=== PATIENT | female | born 1960 | race Hispanic/Latino ===

== ENCOUNTER 2023-08-11 09:23 | Emergency (ER) | payer MEDICAID, SELFPAY ==
[2023-08-11 09:30] VITALS: BP 176/68; PULSE 75; RESP 12; TEMP 36.8; O2SAT 100
--- NOTE | 2023-08-11 10:13 | ED.RECABL ---
HPI - Recheck/Abnormal Lab/Rx General Chief Complaint: Recheck/Abnormal Lab/Rx Stated Complaint: ELEVATED BLOOD PRESSURE Time Seen by Provider: 08/11/23 09:33 History of Present Illness HPI narrative: Patient drank some coffee yesterday and her BP went up; She has been told before that she has possibly high blood pressure however has not required medications because it seems to have been adequately controlled with diet and exercise, she went to another hospital yesterday and had a full workup, however she left because she was very hungry and there was a long wait. She is denying any symptoms other than she feels hungry And slightly anxious right now with a mild headache. no chest pain, or difficulty breathing. No blurry vision. She would like to be started on some medications for blood pressure at this time. Related Data Allergies Allergy/AdvReac Type Severity Reaction Status Date / Time No Known Allergies Allergy Verified 08/11/23 09:46 Review of Systems Review of Systems: All systems reviewed & are unremarkable except as noted in HPI and below Exam Narrative: EXAMINATION OF ORGAN SYSTEMS/BODY AREAS: Constitutional: Vital signs per nursing GENERAL: [No acute distress, non-toxic appearing.] HEAD: Normal with no signs of head trauma. EYES: EOMI, conjunctiva normal ENT: Hearing grossly intact LUNGS: Nonlabored breathing. HEART: [Regular rate and rhythm] ABD: [Soft], [nontender to palpation] EXT: Normal range of motion SKIN: [No rashes or lesions.] NEURO: [Alert and oriented x 3. No gross focal sensory or strength deficits.] PSYCH: Normal affect Course Vital Signs Vital signs: Vital Signs Temperature 98.2 F 08/11/23 09:30 Pulse Rate 75 08/11/23 09:30 Respiratory Rate 12 08/11/23 09:30 Blood Pressure 176/68 H 08/11/23 09:30 Pulse Oximetry 100 08/11/23 09:30 Oxygen Delivery Room Air 08/11/23 09:30 Temperature 98.2 F 08/11/23 09:30 Pulse Rate 68 08/11/23 10:25 Respiratory Rate 18 08/11/23 10:25 Blood Pressure 151/65 H 08/11/23 10:25 Pulse Oximetry 100 08/11/23 10:25 Oxygen Delivery Room Air 08/11/23 09:30 MDM - Recheck/Abnormal Lab/Rx MDM Narrative Medical decision making narrative: Patient with asymptomatic hypertension. No signs or symptoms of end organ dysfunction; no chest pain or shortness of breath, neurological deficits, severe headaches, visual disturbance, oliguria, or symptoms of dissection/AAA). We discussed lifestyle modifications including diet and exercise. I will start patient on amlodipine here and provide script for short course, patient expressed understanding of the instructions and strongly advised to follow-up with PMD for further management. She does take her BP daily so we did discuss goals for BP and she will follow up with her PCP for further medication mgmt with strict return precautions. Discharge Plan Discharge Clinical Impression: Hypertension Patient Disposition: Home, Self-Care Condition: Improved Instructions: Antibiotic Form, Hypertension (ED), Normal Exam (ED) Additional Instructions: Please follow up with your doctor; you can always return for any further issues. Patient Language: Greek Prescriptions: New amlodipine 2.5 mg tablet 2.5 mg PO DAILY Qty: 30 0RF Follow-up/Referrals: UNKNOWN,DOCTOR [Primary Care Provider] -
[2023-08-11] MEDS: amLODIPine BESYLATE 2.5 MG TABLET PO (10:16)
[2023-08-11 10:25] VITALS: BP 151/65; PULSE 68; RESP 18; O2SAT 100
== END 2023-08-11 10:42 | disposition home or self-care (01) ==
LOC: ANHED 10:11
PROVIDERS: Emergency Provider Emergency Medicine
DX: I10 Essential (primary) hypertension (principal)
CPT/HCPCS: 99283; A9270

== ENCOUNTER 2024-09-09 21:57 | Emergency (ER) | payer MEDICARE, SELFPAY ==
--- NOTE | ~2024-09-09 | CT_ITS ---
CT of the Abdomen and Pelvis: Indication: Right flank pain Technique: 2.5 mm axial scans were obtained through the abdomen and pelvis following intravenous adm inistration of 100 cc of Omnipaque 350. Dose reduction technique was used on this scan by utilizing a utomated exposure control and iterative reconstruction technique. The dose-length product (DLP) was 4 94.93 mGy-cm. Findings: Scans through the lung bases are unremarkable. The liver, spleen, pancreas, gallbladder, adrenals and kidneys are within normal limits. No evidence of aortic aneurysm. No lymphadenopathy. No bowel obstruction or bowel wall thickening. There is no evidence to suggest acute appendicitis. Sm all fat-containing abdominal hernia noted. Images through the pelvis were performed. Urinary bladder unremarkable. No adnexal mass seen. No asci aquilino. Impression: No acute abnormality. Small fat-containing umbilical hernia. Reviewed, dictated and finalized at [facility]. HIC ART DESIGNER Impression: No acute abnormality. Small fat-containing umbilical hernia.
--- OUTSIDE RECORDS SUMMARY | 2024-09-09 21:58 | XMS_ITS | Clinical Summary ---
Author Organization [facility] Address [address] [place] [address] Care Team Providers Care Cash Teller Name Role Phone [facility] Primary Care Pro vider Source Comments [facility],non-owned Affiliates and Associated Physician Practices is amultiple site organization consisting of ambulatory clinics and hospital sitesin [place], [place], [place] and [place]. This disclosure is being madepursuant to the Care Everywhere program and may not contain all information available regarding this patient. Last updated 18.[facility] Allergies No known active allergies Medications * Be aware that medications may not be up to date on this document. Alwaysverify current medications with the patient. Medication Sig Dispensed Refills Start Date End Date Status meclizine (ANTIVERT) 25 MG tablet Take 25 mg by mouth 3X/day PRN. 20 tablet 0 02/21/2017 Active ibuprofen (MOTRIN) 400 MG tablet Take 400 mg by mouth q8h PRN (Pain). 15 tablet 0 06/02/2016 Active famotidine (PEPCID) 20 MG tablet Take 20 mg by mouth BID. 60 tablet 0 06/02/2016 Active escitalopram (LEXAPRO) 10 MG tablet Take 10 mg by mouth once daily Active Social History Tobacco Use Types Packs/Day Years Used Date Smoking Tobacco: Never Smokeless Tobacco: Never Alcohol Use Standard Drinks/Week Comments No 0 (1 standard drink = 0.6 oz pur e alcohol) Sex and Gender Information Value Date Recorded Sex Assigned at Not on file Gender Identity Not on file Sexual Orientation Not on file Last Filed Vital Signs Vital Sign Reading Time Taken Comments Blood Pressure 142/59 12/07/2018 4:37 AM CDT Pulse 71 12/07/2018 4:37 AM CDT Temperature 36.7 C (98.1 F) 12/06/2018 11:55 PM CDT Respiratory Rate 18 12/07/2018 4:37 AM CDT Oxygen Saturation 99% 12/07/2018 4:37 AM CDT Inhaled Oxygen Concentration - - Weight 81.6 kg (180 lb) 12/06/2018 9:58 PM CDT Height 157.5 cm (5' 2 ) 12/06/2018 9:58 PM CDT Body Mass Index 32.92 12/06/2018 9:58 PM CDT Plan of Treatment Health Maintenance Due Date Last Done Comments BONE DENSITY TESTING 1959 COLOGUARD (AGES 45-75) - COL ON CA SCREENING 1959 COLON MONITORING 1959 COLONOSCOPY - COLON CA SCREENING 1959 CT COLONOGRAPHY - COLON CA SCREENING 1959 Colorectal Cancer Screening 1959 FIT - COLON CA SCREENING 1959 FLEX SIG - COLON CA SCREENING 1959 LIPID TESTING 1959 PAP SMEAR 1959 HIV SCREENING 1974 HEPATITIS C SCREENING 03/30/1977 DTAP/TDAP/TD VACCINES (1 - Tdap) 1978 PNEUMOCOCCAL VACCINE 50+ (1 of 1 - PCV) 2009 ZOSTER VACCINE (1 of 2) 2009 MAMMOGRAM 08/10/2020 08/10/2018 COVID-19 VACCINE ( - 2023-2 5 season) 2024 INFLUENZA VACCINE (#1) 2024 DEPRESSION SCREENING 07/11/2024 Respiratory Syncytial Virus (RSV) Vaccine Pt: or over 60 yrs (1 - 1-dose 75+ series) 2034 HEPATITIS B VACCINE Aged Out No longe r eligible based on patient's age to complete this topic HIB VACCINE Aged Out No longer eligi ble based on patient's age to complete this topic HPV VACCINE Aged Out No longer eligi ble based on patient's age to complete this topic MENINGOCOCCAL (Group B) VACCINE Aged Out No longer eligible based on patient's age to complete this topic MENINGOCOCCAL VACCINE Aged Out No wilbur arben eligible based on patient's age to complete this topic Care Teams Cash Teller Relationship Specialty Start Date End Date [facility] [address] [place] [id number] PCP - General Dental Secretary 07/10/18
--- OUTSIDE RECORDS SUMMARY | 2024-09-09 21:58 | XMS_ITS | Referral Summary ---
Author Organization [facility] Address [address] [place] [address] Care Team Providers Care Vibrating Screed Operator Name Role [facility] C Primary Care Pro vider Source Comments [facility],non-owned Affiliates and Associated Physician Practices is amultiple site organization consisting of ambulatory clinics and hospital sitesin [place], [place], [place] and [place]. This disclosure is being madepursuant to the Care Everywhere program and may not contain all information available regarding this patient. Last updated 18.[facility] Allergies No known active allergies Medications * [...] 12/06/2018 9:58 PM CDT Plan of Treatment Not on file Care Teams Vibrating Screed Operator Relationship Specialty Start Date End Date Clinicp, Family [facility] [address] [place] [id number] PCP - General Assembler Rubber Footwear 07/10/18
--- OUTSIDE RECORDS SUMMARY | 2024-09-09 21:59 | XMS_ITS | Clinical Summary ---
Author Organization [facility] Address [address] [id number] Phone Care Team Providers Care Plate Glass Grinder Name Role Phone Momo Christopher DO Primary Care Provider [phone] Allergies No known active allergies Medications Blood Pressure Monitoring (Comfort Touch BP Cuff/Medium) misc 1 Device Daily. 1 each 1 3 Active hydrOXYzine HCl (Atarax) 50 MG tablet Take 1 tablet (50 mg) by mouth every 6 (six) hours if needed for itching. 90 tablet 1 3 Active amoxicillin (Amoxil) 500 MG capsule TAKE ONE CAPSULE BY MOUTH EVERY 8 HOURS 4 Active cetirizine (ZyrTEC) 10 MG tablet Take 1 tablet (10 mg) by mouth in the morning. 30 tablet 2 4 Active fluticasone (Flonase) 50 MCG/ACT nasal spray Administer 2 sprays into each nostril in the morning. Shake gently. Before first use, prime pump. After use, clean tip and replace cap.. 16 g 12 4 10/12/19 25 Active ergocalciferol (Vitamin D2) 1.25 MG (32622 UT) capsule TAKE 1 CAPSULE BY MOUTH 1 TIME PER WEEK 4 capsule 4 Active amLODIPine (Norvasc) 2.5 MG tabletIndications :Primary hypertension Take 1 tablet (2.5 mg) by mouth in the morning. 60 tablet 1 4 Active escitalopram (Lexapro) 20 MG tabletIndications :Anxiety disorder, unspecified type Take 1 tablet (20 mg) by mouth in the morning. Take half a pill a day for 1 week then start taking full pill daily.. 60 tablet 2 4 Active metFORMIN (Glucophage) 500 MG tabletIndications :Impaired glucose tolerance TAKE 1 TABLET BY MOUTH EVERYDAY WITH FOOD. TAMAR PASTILLA TAMAR VEZ AL JOANA CON COMIDA 30 tablet 11 4 Active Active Problems Problem Noted Date Diagnosed Date Bruxism (teeth grinding) 10/12/2023 Assessment & Plan (10/12/2023 11:37 AM CDT): - Dentistry following - Trial post nasal drip tx to allow pt to use bruxism dental device that she says normally works - follow up further at next visit; no current indication for pharmacologic intervention - Likely 2/2 anxiety as well; pt declined BH today or any increase in anxiety meds Post-nasal drip 10/12/2023 Assessment & Plan (10/12/2023 11:35 AM CDT): - Start flonase and cetirizine Post-menopausal bleeding 09/20/2022 Prediabetes 06/02/2022 Myofascial pain 12/12/2020 Vitamin D deficiency 08/02/2019 Overview (05/28/2022): Note: Unchanged Localized osteoarthrosis 02/20/2019 Overview (05/28/2022): Note: Unchanged - x-ray 01/29/19 Hypertension 02/20/2019 Overview (05/28/2022): Note: Unchanged Assessment & Plan (10/12/2023 11:38 AM CDT): - Continue amlodipine 2.5 mg - Gave precautions for hypotension Microscopic hematuria 12/21/2018 Overview (05/28/2022): Note: Urology consult at [facility] (04/28) Anxiety disorder 07/06/2018 Overview (05/28/2022): Note: Unchanged Impaired glucose tolerance 02/02/2018 Overview (05/28/2022): Note: Unchanged Special screening for malignant neoplasms, colon 10/20/2017 Overview (05/28/2022): Note: mamm neg 08/30; Tdap 10/26; Pap 01/25 double neg (repeat 5 yrs) Note: Unchanged - Colonoscopy at [facility] 02/26/2020- tubular adenoma polyp in Cecum. Diverticular disease. No recs for repeat were written in doc sent. Per literature review repeat in [address] abdomen/pelvis 11/2018: No acute process identified in the abdomen or pelvis, no masses. Obesity 10/20/2017 Muscle spasm 06/26/2017 Overview (05/28/2022): Note: back Gastroesophageal reflux disease without esophagi tis 06/26/2017 Overview (05/28/2022): Note: previously well controlled on Prilosec or Ranitdine Encounters Date Type Department Care Team Description 08/24/2024 Patient Outreach [address] [address] Fide Leslie 08/10/2024 Patient Outreach [address] [phone] Fide Leslie 08/10/2024 Patient Outreach [address] [phone] Fide Leslie 08/08/[address] [phone] Candice Hodges, RN Results 08/07/2024 9:15 AM [facility]ER Office Visit [address] [phone] Momo Christopher, DO Flank pain (Primary Dx); Prediabetes; Screening for osteoporosis; Need for COVID-19 vaccine; Need for prophylactic vaccination and inoculation against influenza; Other fatigue 08/07/2024 Travel 08/06/2024 Telephone Located Within [facility] [address] [facility] [place] [address] Momo Christopher DO 06/25/2024 Telephone [facility] [address] [place] [phone] Momo Christopher DO from Last 3 Months Immunizations Immunization Administration Dates Next Due Hep B, adult 03/22/2023,10/14/2022,08/11/2022 Influenza, High Dose Seasona l, Preservative Free 08/07/2024 Influenza, injectable, quadr ivalent, preservative free 04/19/2023 Influenza, intradermal, quad rivalent, preservative free, injectable 05/13/2017 Influenza, recombinant, quad rivalent, injectable, preservative free 06/02/2022,05/18/2021,04/29/2020,2018,06/06/2018 Pneumococcal Conjugate PCV 20 08/07/2024 Tdap 10/20/2017 Zoster, Recombinant 03/08/2024,10/12/2023 Social History Tobacco Use Types Packs/Day Years Used Date Smoking Tobacco: Never Passive Smoke Exposure: Never Smokeless Tobacco: Never Tobacco Cessation:Counseling Given: Not Answered Alcohol Use Standard Drinks/Week Comments Never 0 (1 standard drink = 0.6 oz pur e alcohol) PHQ-9 Answer Date Recorded Patient Health Questionnaire-9 Score 5 03/08/2024 Intimate Partner Violence Answer Date R ecorded Do you feel physically and e motionally safe where you currently live? Yes 08/10/2024 In the past year, have you b een afraid of your partner or ex-partner? No 08/10/2024 Social Connections Answer Date Recorded How often do you seek or kenyetta k to people that you care about and feel close to? (For example: talking to friends on the phone, visiting friends or family, going to denominational or club meetings) 5 or more times a week 08/10/2024 Financial Resource Strain Answer Date R ecorded Income % of Federal Poverty Line (FPL) 100% or b elow 08/10/2024 What is the highest level of school that you have finished? Less than high school degree 08/10/2024 What is your current work situation? Unemployed 08/10/2024 What is your main insurance? None/uninsured Unable to get: Utilities No 025 Unable to get: Medicine or A ny Health Care (Medical, Dental, Mental Health, Vision) No 08/10/2024 Unable to get: Phone No 08/10/2024 Unable to get: Clothing No 08/10/19 25 Unable to get: skin care therapist No 2024 Unable to get: Other No 08/10/2024 Stress Answer Date Recorded Stress is when someone feels tense, nervous, anxious or can't sleep at night because their mind is troubled. How stressed are you? (If risk for stress identified, consider performing SHAJI-7 in Screenings activity) Very Much 08/10/2024 Food Insecurity Answer Date Recorded Unable to get: Food No 08/10/2024 Transportation Needs Answer Date Record ed Has lack of transportation k ept you from medical appointments, meetings, work, or from getting things needed for daily living? Check all that apply. Medical Appointments 08/10/2024 Housing Stability Answer Date Recorded What is your housing situation today? I have marium sing 08/10/2024 Are you worried about losing your housing? No 08/10/2024 Comments Unknown Sex and Gender Information Value Date Recorded Sex Assigned at Female 07/21/2022 2:04 PM EST Legal Sex Female 4:03 PM EDT Gender Identity Female 04/11/2022 4:03 PM EDT Sexual Orientation Straight 04/11/2022 4: 03 PM EDT Last Filed Vital Signs Vital Sign Reading Time Taken Comments Blood Pressure 122/72 08/07/2024 11:03 AM [facility] Pulse 76 08/07/2024 9:24 AM [facility] Temperature 36.8 C (98.2 F) 08/07/2024 9:24 AM [facility]ER Respiratory Rate 16 08/02/2019 9:17 AM [facility]ER Oxygen Saturation 96% 06/15/2023 1:08 PM [facility]ER Inhaled Oxygen Concentration - - Weight 76.9 kg (169 lb 8 oz) 08/07/2024 9:24 AM [facility] Height 167.6 cm (5' 6 ) 08/07/2024 9:24 AM [facility] Body Mass Index 27.36 08/07/2024 9:24 AM LAP [facility]ER Plan of Treatment Upcoming Encounters Date Type Department Care Team (Late st Contact Info) Description 09/18/2024 2:00 PM CDT Office Visit [facility] Medicine [address] [facility] [place] [phone] Momo Christopher DO [address] [place] [address] Health Maintenance Due Date Last Done Comments Bone Density Scan 1959 CT Colonography 1959 FIT-DNA 1959 FIT 1959 FOBT 1959 Periodontal Maintenance 1959 Sigmoidoscopy 1959 MMR Vaccines (1 of 1 - Standard series) 1960 DTaP/Tdap/Td Vaccines (2 - Td or Tdap) 11/17/2017 10/20/2017 Pap Smear 01/12/2021 01/12/2018 Well Adult Exam (Age 18+ Annual Physical) 09/21/2023 09/20/2022 Dental Oral Exam 10/30/2023 04/29/2023, 10/19/2022 COVID-19 Vaccine ( season) 2024 11/28/2020, 10/29/2020 Dental X-Rays 04/29/2024 04/29/2023, 10/19/2022 Diabetes: Hemoglobin A1C 08/07/2025 025, 03/08/2024, 08/31/2023, Additional history exists Mammogram 10/25/2025 10/26/2023, 0401/2024, 10/26/2023, Additional history exists Diabetes Screening 08/07/2027 08/07/2024, 0 03/08/2024, 08/31/2023, Additional history exists Cervical Cancer Screening 09/28/2027 HPV/Cotest 09/28/2027 09/27/2022, 01/12/2018 Pano 10/21/2027 10/19/2022 Colonoscopy 02/25/2030 02/26/2020, 02/25/2020 Colorectal Cancer Screening 02/25/2030 RSV Vaccines or Age 60+ (1 - 1-dose 75+ series) 2034 HIV Screening Completed 05/25/2019 Hepatitis B Screening Completed 07/28/2022, 019 Hepatitis C Screening Completed 07/28/2022 Hepatitis B Vaccines Completed 03/22/2023, 10/14/2022, 08/11/2022 Zoster Vaccines Completed 03/08/2024, 10/12/2023 Influenza Vaccine Completed 08/07/2024, , 06/02/2022, Additional history exists Pneumococcal Vaccine: 50+ Years Completed 08/07/2024 HIB Vaccines Aged Out No longer eligi ble based on patient's age to complete this topic HPV Vaccines Aged Out No longer eligi ble based on patient's age to complete this topic Hepatitis A Vaccines Aged Out No long er eligible based on patient's age to complete this topic IPV Vaccines Aged Out No longer eligi ble based on patient's age to complete this topic Meningococcal B Vaccine Aged Out No l onger eligible based on patient's age to complete this topic Meningococcal Vaccine Aged Out No wilbur arben eligible based on patient's age to complete this topic Rotavirus Vaccines Aged Out No longer eligible based on patient's age to complete this topic Procedures Procedure Name Priority Date/Time Associated Diagnosis Comments POCT CHOLESTEROL Routine 08/07/2024 11:3 8 AM [facility] Prediabetes POCT HEMOGLOBIN A1C Routine 08/07/2024 1 1:37 AM [facility] Prediabetes URINALYSIS, COMPLETE W/REFLEX TO CULTURE Routine 08/07/2024 11:27 AM [facility]ER Flank pain COMPREHENSIVE METABOLIC PANEL Routine 08/07/2024 11:27 AM [facility]ER Other fatigue REFLEXIVE URINE CULTURE Routine 08/07/2024 11:27 AM [facility]ER HM MAMMOGRAPHY Routine 10/26/2023 1:39 PM CDT BITEWINGS - 4 RADIOGRAPHIC IMAGES Routine 04/29/2023 10:30 AM CDT Encounter for dental examination PERIODIC ORAL EVALUATION - ESTABLISHED PATIENT Routine 04/29/2023 10:30 AM CDT Encounter for dental examination PANORAMIC RADIOGRAPHIC IMAGE Routine 10/19/2022 11:00 AM CDT Encounter for dental examination and cleaning with abnormal findings THINPREP TIS PAP AND HPV MRNA E6/E7 Routine 09/27/2022 11:19 AM CDT Cervical cancer screening HEPATITIS PANEL, GENERAL Routine 07/28/2022 1:41 PM [facility]ER Myofascial pain LEGACY COLONSCOPY Routine 02/25/2020 11: 00 PM CDT THINPREP TIS PAP Routine 01/12/2018 3:56 PM CDT from Last 3 Months or Most Recently Relevant to Health Maintenance Results * POCT CHOLESTEROL (08/07/2024 11:38 AM [facility]) Glucose 136 mg/dL HDL, POC 75 LDL, Direct POC 90 <100 mg/dL NON-HDL, CHOLESTEROL POC 136 Cholesterol, POC 211 TC/HDL, POC 2.8 > or = 50 mg/dL Triglycerides, POC 228 0-149 mg/dL Blood Venous blood specimen / Unknown 08/07/2024 11:38 AM [facility] us Conner Guzman MD POINT OF CARE TEST ENTER/MARIA DEL ROSARIO T ORDERABLES Final Result * (ABNORMAL) POCT HEMOGLOBIN A1C Manually Resulted (08/07/2024 11:37 AM [facility]ER) HEMOGLOBIN A1C 6.1(A) <=5.8 % Blood Venous blood specimen / Unknown 08/07/2024 11:37 AM [facility] us Conner Guzman MD POINT OF CARE TEST ENTER/MARIA DEL ROSARIO T ORDERABLES Final Result * REFLEXIVE URINE CULTURE (08/07/2024 11:27 AM [facility]ER) URINE CULTURE SEE NOTE Comment:NO CULTURE INDICATED 08/07/2024 11:2 7 AM [facility]ER 08/07/2024 11:27 AM [facility] Conner Guzman MD LAB MICROBIOLOGY - GENERAL O RDERABLES Final Result Performing Organization Address [facility] de Phone Number [facility] * URINALYSIS, COMPLETE W/REFLEX TO CULTURE (08/07/2024 11:27 AM [facility]) COLOR URINE YELLOW YELLOW APPEARANCE URINE CLEAR CLEAR SPECIFIC GRAVITY URINE 1.017 1.001 - 1.035 PH URINE 6.5 5.0 - 8.0 GLUCOSE UR NEGATIVE NEGATIVE BILIRUBIN UR NEGATIVE NEGATIVE KETONE UR NEGATIVE NEGATIVE OCCULT BLOOD URINE NEGATIVE NEGATIVE PROTEIN URINE NEGATIVE NEGATIVE NITRITE UR NEGATIVE NEGATIVE LEUKOCYTE ESTERASE URINE NEGATIVE NEGATIVE WBC URINE NONE SEEN < OR = 5 /HPF RBC URINE NONE SEEN < OR = 2 /HPF SQUAMOUS EP URINE NONE SEEN < OR = 5 /HPF BACTERIA UR NONE SEEN NONE SEEN /HPF HYALINE CAST URINE NONE SEEN NONE SEEN /LPF COMMENT SEE NOTE Comment: This urine was analyzed for the presence of WBC, RBC, bacteria, casts, and other formed elements. Only those elements seen were reported. Urine Urine specimen obtained by clean catch procedure / Unknown 08/07/2024 11:27 AM [facility]ER 08/07/2024 11:27 AM [facility] Conner Guzman MD LAB URINE ORDERABLES Final R esult Performing Organization Address [facility] de Phone Number [facility] * (ABNORMAL) Comprehensive metabolic panel (08/07/2024 11:27 AM [facility]ER) GLUCOSE 111(H) 65 - 99 mg/dL [facility] Comment: Fasting reference interval For someone without known diabetes, a glucose value between 100 and 125 mg/dL is consistent with prediabetes and should be confirmed with a follow-up test. BUN 9 7 - 25 mg/dL [facility] CREATININE SERUN 0.70 0.50 - 1.05 mg/dL [facility] EGFR 96 > OR = 60 mL/min/1. 73m2 [facility] BUN/CREATININE RATIO SEE NOTE: 6 - 22 (calc) [facility] Comment: Not Reported: BUN and Creatinine are within reference range. SODIUM 139 135 - 146 mmol/L [facility] POTASSIUM 4.1 3.5 - 5.3 mmol/L [facility] CHLORIDE 103 98 - 110 mmol/L [facility] CARBON DIOXIDE 28 20 - 32 mmol/L [facility] CALCIUM 9.6 8.6 - 10.4 mg/dL [facility] PROTEIN TOTAL 7.8 6.1 - 8.1 g/dL [facility] ALBUMIN 4.3 3.6 - 5.1 g/dL [facility] GLOBULIN 3.5 1.9 - 3.7 g/dL (calc) [facility] A/G RATIO 1.2 1.0 - 2.5 (calc) [facility] BILIRUBIN TOTAL 0.6 0.2 - 1.2 mg/dL [facility] ALKALINE PHOSPHATASE, SERUM 99 37 - 153 U/L [facility] AST 24 10 - 35 U/L [facility] ALT 18 6 - 29 U/L [facility] Blood Venous blood specimen / Unknown 08/07/2024 11:27 AM [facility]ER 08/07/2024 11:27 AM [facility] Conner Guzman MD LAB BLOOD ORDERABLES Final R esult [facility] [id number] [place] [address], * Hm Mammography (10/26/2023 1:39 PM CDT) Anatomical Region Laterality Modality Other Dorothea Cabrales MD HEALTH MAINTENANCE Edited Resul t - Final * THINPREP TIS PAP AND HPV mRNA E6/E7 (09/27/2022 11:19 AM CDT) CLINICAL INFORMATION [facility] Comment:Postmenopausal LMP [facility] 1 Comment:10 YRS POSTMENOOAUSA PREV. PAP [facility] 1 Comment:NONE GIVEN PREV. BX [facility] 1 Comment:NONE GIVEN SOURCE [facility] 1 Comment:Cervix Specimen adequacy: [facility] Comment:SATISFACTORY FOR BRANDT LUATION PAP SMEAR [facility] 1 Comment: Negative for intraepithelial lesion or malignancy. Atrophic pattern; predominantly parabasal cells COMMENT [facility] Comment: This Pap test has been evaluated with computer assisted technology. PERFORMED BY [employer]mi Comment: MANJIT, CT(ASCP) CT screening location: [place] [address] [place] [address] (ALWAYS MESSAGE) [facility] [employer] Comment: EXPLANATORY NOTE: The Pap is a screening test for cervical cancer. It is not a diagnostic test and is subject to false negative and false positive results. It is most reliable when a satisfactory sample, regularly obtained, is submitted with relevant clinical findings and history, and when the Pap result is evaluated along with historic and current clinical information. HPV mRNA E6/E7 Not Detected Not Detected [employer] [place] Comment: Methodology: Film Library Clerk-Mediated Amplification This assay detects E6/E7 viral messenger RNA (mRNA) from 14 high-risk HPV types (16,18,31,33,35,39,45,51,52,56,58,59,66,68). Cervical sources are required for HPV testing. If a vaginal source from a patient who has had a total hysterectomy with removal of cervix was submitted, please contact the testing laboratory for alternative testing options. For additional information, please refer to http://[facility].Reach.ly/faq/MZV170h7 (This link if provided for information/ educational purposes only.) Swab 09/27/2022 11:1 9 AM CDT 09/28/2022 12:29 AM CDT Fozia Friedman MD LAB CYTOLOGY ORDERABLES Fin al Result [employer] [address] [address] [place] [address], [employer] * (ABNORMAL) HEPATITIS PANEL, GENERAL (07/28/2022 1:41 PM [facility]ER) HEPATITIS A AB REACTIVE( A) NON-REACT ROHAN [email or web address] [place] Comment: For additional information, please refer to http://[facility].Reach.ly/faq/QEA135 (This link is being provided for informational/ educational purposes only.) HEPATITIS B SURF AB NON-REACT ROHAN NON-REACT ROHAN [facility] HEPATITIS B SURFACE AG NON-REACT ROHAN NON-REACT ROHAN [email or web address] [place] HEPATITIS B CORE AB NON-REACT ROHAN NON-REACT ROHAN [facility] HEPATITIS C AB NON-REACT ROHAN NON-REACT ROHAN [facility] SIGNAL TO CUT-OFF <0.02 <1.00 [facility] Comment: HCV antibody was non-reactive. There is no laboratory evidence of HCV infection. In most cases, no further action is required. However, if recent HCV exposure is suspected, a test for HCV RNA (test code 45783) is suggested. For additional information please refer to http://education.Reach.ly/faq/XKZ32u3 (This link is being provided for informational/ educational purposes only.) Blood Venous blood specimen / Unknown 07/28/2022 1:41 PM [facility]ER 07/28/2022 7:50 PM [facility]ER Dorothea Cabrales MD LAB BLOOD ORDERABLES Final Resu lt [employer] [address] [address] [place] [address], * Legacy Colonoscopy (02/25/2020 11:00 PM CDT) Anatomical Region Laterality Modality Endoscopy 02/25/2020 11:0 0 PM CDT 02/25/2020 11:00 PM CDT Narrative 02/25/2020 11:00 PM CDT Access [employer] Patient Window in the Media Tab above to review report after 07/11/2018. For reports prior to 07/11/2018, reference Fernando Procedure Note Provider, [facility] Conversion - 07/20/2022 Access [employer] Patient Window in the Media Tab above to review report after07/11/2018. For reports prior to 07/11/2018, [facility] ENDOSCOPY PROCEDURE ORDERABLES Final Result * THINPREP TIS PAP (01/12/2018 3:56 PM CDT) STATEMENT OF ADEQUACY [facility] Comment:Satisfactory for brandt luation. Endocervical/transformation zone component present. STATEMENT OF ADEQUACY [facility] Comment:Satisfactory for brandt luation. Endocervical/transformation zone component present. PAP SMEAR [facility] Comment:Negative for intraep ithelial lesion or malignancy. PAP SMEAR [facility] Comment:Negative for intraep ithelial lesion or malignancy. COMMENT [facility] Comment:This Pap test has be en evaluated with computer assisted technology. 01/12/2018 3:56 PM CDT 01/12/2018 3:56 PM CDT [facility] Conversion Provider LAB MICROBIOLOGY - G ENERAL ORDERABLES Final Result [facility] from Last 3 Months or Most Recently Relevant to Health Maintenance Care Teams Plate Glass Grinder Relationship Specialty Start Date End Date Momo Christopher DO [address] [place] [id number] PCP - General Family Medicine 01/11/24
--- OUTSIDE RECORDS SUMMARY | 2024-09-09 21:59 | XMS_ITS | Referral Summary ---
Author Organization [facility] [address] [facility] Address [address] [place] [address] Care Team Providers Care Polishing Machine Operator Name Role Phone Dorothea Cabrales MD Primary Care Provider [phone] Allergies No known active allergies Medications acetaminophen (TYLENOL) 325 mg tablet Take 325 mg by mouth every 6 (six) hours as needed Active polyethylene glycol (GoLYTELY) 236-22.74-6.74 -5.86 gram solutionIndicat ions:Bowel Evacuation Drink 2 liters(half of jug) @ 6pm evening before procedure & 2 liters(remainder of jug) @ 5:30am on morning of procedure. 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 Gender Identity Not on file Sexual Orientation Not on file Last Filed Vital Signs Vital Sign Reading Time Taken Comments Blood Pressure 182/76 11/17/2021 3:32 PM CDT Pulse 94 11/17/2021 3:32 PM CDT Temperature 36.2 C (97.2 F) 02/26/2020 2:53 PM CDT Respiratory Rate 10 02/26/2020 3:13 PM CDT Oxygen Saturation 96% 02/26/2020 3:13 PM CDT Inhaled Oxygen Concentration - - Weight 83.5 kg (184 lb) 11/17/2021 3:10 PM CDT Height 160 cm (5' 3 ) 11/17/2021 3:10 PM CDT Body Mass Index 32.59 11/17/2021 3:10 PM CDT Plan of Treatment Not on file Procedures Procedure Name Priority Date/Time Associated Diagnosis Comments SCREENING MAMMOGRAM BILATERAL [place] Schedule Routine, Read Routine (OP Routine) 10/26/2023 3:52 PM CDT Screening mammogram, encounter for COLONOSCOPY 02/26/2020 2:10 PM CDT from Last 3 Months or Most Recently Relevant to Health Maintenance Results * Screening Mammogram Bilateral [place] (10/26/2023 3:52 PM CDT) Anatomical Region Laterality Modality Breast Bilateral Mammography Narrative 10/27/2023 7:55 AM CDT Mammogram Technique: Bilateral Digital Breast Tomosynthesis, Bilateral C-view 2D Screening mammogram. Views obtained: bilateral craniocaudal and bilateral mediolateral oblique. Computer Aided Detection was performed. Mammogram Findings: The present examination has been compared to prior imaging studies performed at [facility] on 09/07/2022, and at [facility] on 09/05/2019 and 08/06/2021. There are scattered areas of fibroglandular density. There is no suspicious abnormality in either breast. Impression: There is no mammographic evidence of malignancy. Annual screening mammography is recommended. OVERALL FINAL ASSESSMENT: BI-RADS CATEGORY 1: Negative. Procedure Note Kiley Bundy MD - 10/27/2023 Mammogram Technique: Bilateral Digital Breast Tomosynthesis, Bilateral C-view 2D Screening mammogram. Views obtained: bilateral craniocaudal and bilateral mediolateral oblique. Computer Aided Detection was performed. Mammogram Findings: The present examination has been compared to prior imaging studies performed at [facility] on 09/07/2022, and at [facility] on 09/05/2019 and 08/06/2021. There are scattered areas of fibroglandular density. There is no suspicious abnormality in either breast. Impression: There is no mammographic evidence of malignancy. Annual screening mammography is recommended. OVERALL FINAL ASSESSMENT: BI-RADS CATEGORY 1: Negative. us Self Screening Mammogram IMG MAMMO PROCEDURES Fi nal Result * COLONOSCOPY (02/26/2020 2:10 PM CDT) Anatomical Region Laterality Modality Other Narrative Procedure Note Myah Akers MD - 02/26/2020 2:10 PM CDT [facility] Patient Name: Kasey Payan Procedure Date: 02/26/2020 2:10 PM Date of : 1960 Admit Type: Outpatient Age: 59 Gender: Female Attending MD: Myah Akers M.D. Room: [facility] ENDOSCOPY ROOM 8 Note Status: Finalized Procedure: Colonoscopy Indications: Screening for colorectal malignant neoplasm Referring MD: Chad CrockettNJocelyne Providers: Myah Akers M.D., Mario Prieto M.D. Medicines: Monitored Anesthesia Care Complications: No immediate complications. Estimated Blood Loss: Estimated blood loss: none. Procedure: Pre-Anesthesia Assessment: - Immediately prior to administration ofmedications, the patient was re-assessed for adequacy to receive sedatives. - The risks and benefits of the procedure and the sedation options and risks were discussed with the patient. All questions were answered and informed consent was obtained. The benefits, risks and alternatives of theprocedure and sedation were discussed and informed consent was obtained. All questions were answered. Please referto the signed informed consent document in the medical record. The colonoscopy was performed without difficulty. The patient tolerated the procedurewell. The quality of the bowel preparation was adequate.The scope was passed under direct vision. The [id number] endoscope was introduced through the anusand advanced to the cecum, identified by appendiceal orifice and ileocecal valve. The bowel preparationused was Miralax. Findings: The perianal and digital rectal examinations were normal. There was 4mm sessile polyp removed with cold biopsy forceps and retrieved. Therewas also small mouthed sigmoid diverticuli and small internalhemorrhoids. Impression: - Single diminutive cecal polyp - Mild sigmoid diverticulosis coli - Small internal hemorrhoids Recommendation: 1. Await pathology results. 2. Dr. Akers will call you within a week todiscuss with you the biopsy results Electronically Signed by Myah Akers M.D. Myah Akers M.D. 02/26/2020 2:55:35 PM . Number of Addenda: 0 Note Initiated On: 02/26/2020 2:10 PM Recognized by the [employer] for promoting quality in endoscopy us Myah Akers MD ENDOSCOPY PROCEDURES F inal Result from Last 3 Months or Most Recently Relevant to Health Maintenance Insurance GATEWAY TO [employer] G[facility]WAY TO [facility] Advance Directives For more information, please contact: [phone] * Full Code (Latest Code Status on File) Date Activated Date Inactivated Comments 02/26/2020 12:58 PM 02/26/2020 7:34 PM Care Teams Polishing Machine Operator Relationship Specialty Start Date End Date Dorothea Cabrales MD [address] [place] [id number] PCP - General Family Medicine 10/14/23
--- OUTSIDE RECORDS SUMMARY | 2024-09-09 21:59 | XMS_ITS | Clinical Summary ---
Author Organization [facility] [address] 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 Gender Identity Not on file Sexual Orientation Not on file Obstetrics History Last Filed Vital Signs Vital Sign Reading [...] 11/17/2021 3:10 PM CDT Plan of Treatment Health Maintenance Due Date Last Done Comments Cervical Cancer Screening 1960 Depression Screening 1960 Fall Risk Assessment 1960 Hepatitis C Screening 1960 Osteoporosis Screening-Bone Density Scan 1960 Pneumococcal vaccine 65+ (1 of 1 - PCV) 2009 Zoster Vaccine (2 of 2) 12/07/2023 10/12/2023 Influenza Vaccine (#1) 2024 3, 06/02/2022, 05/18/2021, Additional history exists Well Visit 65+ 2024 Breast Cancer Screening-Mammogram 10/25/2024 10/26/2023, 09/07/2022, 09/07/2022, Additional history exists DTaP/Tdap/Td Vaccine (2 - Td or Tdap) 10/21/2027 10/20/2017 Colon Cancer Screening-Colonoscopy 02/25/2030 02/26/2020 Colon Cancer Screening-CT Colonography Discontinued 02/26/2020 Colon Cancer Screening-DNA Stool Discontinued 02/26/20 20 Colon Cancer Screening-FIT Discontinued 02/26/2020 Colon Cancer Screening-Sigmoidoscopy Discontinued 02/26/2020 Hepatitis B Screening Completed 03/22/2023 , 10/14/2022, 08/11/2022 Procedures Procedure Name Priority Date/Time Associated Diagnosis [...] compared to prior imaging studies performed at [facility] on 09/07/2022, and at [facility] on 09/05/2019 and 08/06/2021. There are scattered [...] compared to prior imaging studies performed at [facility] on 09/07/2022, and at [facility] on 09/05/2019 and 08/06/2021. There are scattered [...] Female Attending MD: Myah Akers M.D. Room: [facility] ENDOSCOPY ROOM 8 Note Status: Finalized Procedure: Colonoscopy Indications: Screening for colorectal malignant neoplasm Referring MD: Rocky Crockett Providers: Myah Akers M.D., Mario Prieto M.D. [...] was passed under direct vision. The CF [id number] endoscope was introduced through the anusand advanced [...] On: 02/26/2020 2:10 PM Recognized by the [employer] for promoting quality in endoscopy Myah Akers MD ENDOSCOPY PROCEDURES F inal Result from Last 3 Months or Most Recently Relevant to Health Maintenance Insurance [id number] [place] [address] GATEWAY TO [employer] GATEWAY TO [facility] [address] Advance Directives For more information, please contact: [phone] * Full Code (Latest Code Status on File) Date Activated Date Inactivated Comments 02/26/2020 12:58 PM 02/26/2020 7:34 PM Care Teams Thoracic Medicine Specialist Relationship Specialty Start Date End Date Dorothea Cabrales MD [address] [place] [id number] PCP - General Family Medicine 10/14/23
--- OUTSIDE RECORDS SUMMARY | 2024-09-09 21:59 | XMS_ITS ---
Author Organization [facility] Address [address] [address] Phone Care Team Providers Care Coupon And Bond Collection Clerk Name Role Phone Momo Christopher DO Primary Care Provider [phone] SDOH Coordination Status:Enrolled (Active) Start date:08/10/2024 Enrollment date:08/10/2024 Related social drivers of health:Financial Resource Strain, Depression, Stress, Transportation Needs Overview This program tracks tasks related to outreach for Social Drivers of Health (SDOH). Case Team Name Relationship Phone Fide Leslie(Responsible Staff) Continued Care and Services Coordination
--- OUTSIDE RECORDS SUMMARY | 2024-09-09 21:59 | XMS_ITS | Patient Health Summary ---
Author Organization [facility] Address [address] [place] [address] Care Team Providers Care Bar Tender Name Role [facility] Primary Care Pro vider Note from [facility],non-owned Affiliates and Associated Physician Practices is amultiple site organization consisting of ambulatory clinics and hospital sitesin [place], [place], [place] and [place]. This disclosure is being madepursuant to the Care Everywhere program and may not contain all information available regarding this patient. Last updated 18.[facility] Allergies No known active allergies Medications * Be aware that medications may not be up to date on this document. Alwaysverify current medications with the patient. * meclizine (ANTIVERT) 25 MG tablet(Started 02/21/2017) Take 25 mg by mouth 3X/day PRN. * ibuprofen (MOTRIN) 400 MG tablet(Started 06/02/2016) Take 400 mg by mouth q8h PRN (Pain). * famotidine (PEPCID) 20 MG tablet(Started 06/02/2016) Take 20 mg by mouth BID. * escitalopram (LEXAPRO) 10 MG tablet Take 10 mg by mouth once daily Social History Tobacco Use Types Packs/Day Years [...] Mass Index 32.92 12/06/2018 9:58 PM CDT Procedures * CARDIAC EKG ORDER(Performed 02/23/2020) * CARDIAC EKG ORDER(Performed 12/22/2018) * CT ABDOMEN PELVIS W CONTRAST(Performed 12/07/2018) Performed for Abdominal pain, right lower quadrant * TROPONIN I(Performed 12/07/2018) * LIPASE BLOOD(Performed 12/07/2018) * COMPREHENSIVE METABOLIC PANEL(Performed 12/07/2018) * CBC W AUTO DIFFERENTIAL(Performed 12/07/2018) * XR CHEST 2VW(Performed 12/07/2018) Performed for Abdominal pain, right lower quadrant * URINALYSIS W/MICROSCOPIC NO CULTURE(Performed 12/06/2018) * CULTURE URINE(Performed 12/06/2018) * CT ANGIO BRAIN AND NECK(Performed 07/11/2018) Performed for Facial tingling sensation * CT CHEST PE W ABD PELVIS W CONT(Performed 07/11/2018) Performed for Chest pain, unspecified type * CT HEAD WO CONTRAST(Performed 07/10/2018) Performed for Facial tingling sensation * XR CHEST 2VW(Performed 07/10/2018) Performed for Chest pain, unspecified type * D-DIMER(Performed 07/10/2018) * TROPONIN I(Performed 07/10/2018) * COMPREHENSIVE METABOLIC PANEL(Performed 07/10/2018) * CBC W AUTO DIFFERENTIAL(Performed 07/10/2018) * EKG 12-LEAD(Performed 07/10/2018) Performed for Chest pain, unspecified type * URINALYSIS REFLEX TO MICROSCOPIC NO CULTURE(Performed 02/21/2017) * CT HEAD WO CONTRAST(Performed 02/21/2017) * COMPREHENSIVE METABOLIC PANEL(Performed 02/21/2017) * CBC W AUTO DIFFERENTIAL(Performed 02/21/2017) * LIPASE BLOOD(Performed 02/21/2017) * CBC W AUTO DIFFERENTIAL(Performed 02/21/2017) * EKG 12-LEAD(Performed 02/21/2017) * CT ABDOMEN PELVIS W CONTRAST(Performed 06/02/2016) * CT LUMBAR SPINE WO CONTRAST(Performed 06/02/2016) * XR LUMBAR SPINE 2 OR 3VW(Performed 06/02/2016) * CBC W AUTO DIFFERENTIAL(Performed 06/02/2016) * COMPREHENSIVE METABOLIC PANEL(Performed 06/02/2016) * LIPASE BLOOD(Performed 06/02/2016) * CK + CKMB PANEL(Performed 06/02/2016) * TROPONIN I(Performed 06/02/2016) * CBC W AUTO DIFFERENTIAL(Performed 06/02/2016) * URINALYSIS REFLEX TO MICROSCOPIC NO CULTURE(Performed 06/02/2016) * EKG 12-LEAD(Performed 06/02/2016) Results * CARDIAC EKG ORDER (02/23/2020 12:51 PM CDT) Only the most recent of2 resultswithin the time period is included. Narrative 02/23/2020 12:51 PM CDT Ordered by an unspecified provider. Scanned Document CARDIAC SERVICES ORD ERABLES * CT ABDOMEN PELVIS W CONTRAST (12/07/2018 4:36 AM CDT) Only the most recent of2 resultswithin the time period is included. Anatomical Region Laterality Modality Abdomen, Pelvis Computed Tomogra phy 12/07/2018 4:50 AM CDT Impressions 12/07/2018 9:54 AM CDT IMPRESSION: 1. No acute process identified in the abdomen or pelvis. Dictated by Ramón Hutchinson MD (limited radiology technician). I, Dr. Jose BRYAN M.D. have personally reviewed and interpreted this examination/study. This report was electronically signed by Jose BRYAN M.D. on 12/07/2018 9:54 AM . Narrative 12/07/2018 9:54 AM CDT EXAMINATION: Computed tomography (CT) of the abdomen and pelvis with contrast HISTORY: abdominal pain, flank pain TECHNIQUE: CT of the abdomen and pelvis was performed following the uneventful administration of 100 mL of Isovue 370 intravenous contrast according to standard protocol. COMPARISON: Comparison is made with a study from06/01/2016.i FINDINGS: The aorta is normal in course and caliber. The visible lung bases are clear. The heart size is normal without pericardial effusion. The liver enhances homogenously. The gallbladder is normal without evidence of wall thickening, pericholecystic fluid, or gallstones. The intrahepatic and extrahepatic bile ducts are nondilated. The spleen enhances homogenously without focal lesion. The pancreas and adrenal glands are normal. The kidneys enhance symmetrically. There is no evidence of renal calculus or hydronephrosis. The distal esophagus and stomach appear normal. The small bowel and large bowel are normal in caliber without evidence of wall thickening or obstruction. The appendix is not seen; however, no inflammatory changes are seen in the right lower quadrant. No free air or free fluid is identified within the abdomen. There is no abdominal lymphadenopathy. The urinary bladder is distended with fluid and appears normal. The uterus is normal. No free fluid is seen within the pelvis. There is no pelvic lymphadenopathy. Bone windows demonstrate no suspicious lytic or blastic lesions. The visible osseous structures are intact. Procedure Note Miranda Bryan MD - 12/07/2018 EXAMINATION: Computed tomography (CT) of the abdomen and pelvis with contrast HISTORY: abdominal pain, flank pain TECHNIQUE: CT of the abdomen and pelvis was performed following the uneventful administration of 100 mL of Isovue 370 intravenous contrast according to standard protocol. COMPARISON: Comparison is made with a study from06/01/2016.i FINDINGS: The aorta is normal in course and caliber. The visible lung bases are clear. The heart size is normal without pericardial effusion. The liver enhances homogenously. The gallbladder is normal without evidence of wall thickening, pericholecystic fluid, or gallstones. The intrahepatic and extrahepatic bile ducts are nondilated. The spleen enhances homogenously without focal lesion. The pancreas and adrenal glands are normal. The kidneys enhance symmetrically. There is noevidence of renal calculus or hydronephrosis. The distal esophagus and stomach appear normal. The small bowel andlarge bowel are normal in caliber without evidence of wall thickening or obstruction. The appendix is not seen; however, no inflammatory changes are seen in the right lower quadrant. No free air or free fluid is identified within the abdomen. There is no abdominal lymphadenopathy. The urinary bladder is distended with fluid and appears normal. Theuterus is normal. No free fluid is seen within the pelvis. There is no pelvic lymphadenopathy. Bone windows demonstrate no suspicious lytic or blastic lesions. The visible osseous structures are intact. IMPRESSION: 1. No acute process identified in the abdomen or pelvis. Dictated by Ramón Hutchinson MD (limited radiology technician). I, Dr. Jose BRYAN M.D. have personally reviewed and interpretedthis examination/study. This report was electronically signed by Jose BRYAN M.D. on 12/07/2018 9:54 AM . Farzana Montiel MD CT ORDERABLES * TROPONIN I (12/07/2018 3:18 AM CDT) Only the most recent of3 resultswithin the time period is included. [facility] Troponin I <0.010 <0.032 ng/mL 12/07/2018 3:50 AM [facility] Blood BLOOD SPECIMEN / Unknown Venipuncture / Unknown 12/07/2018 3:18 AM CDT 12/07/2018 3:22 AM CDT Farzana Montiel MD [facility] Organization Address City/State/ZIP Co de Phone Number [address] [phone] * (ABNORMAL) CBC W AUTO DIFFERENTIAL (12/07/2018 3:18 AM CDT) Only the most recent of6 resultswithin the time period is included. [facility] WBC 9.4 3.5 - 10.5 10 3/uL 12/07[facility]2018 3:27 [facility] RBC 4.55 3.90 - 5.00 10 6/uL 12/07/2018 3:27 AM [facility] Hemoglobin 12.9 12.0 - 15.5 g/dL 12/07/2018 3:27 AM [facility] Hematocrit 38.4 35.0 - 45.0 % 12/07/2018 3:27 AM [facility] MCV 84.4 81.0 - 97.0 fL 12/07/2018 3:27 AM [facility] MCH 28.4 28.0 - 34.0 pg 12/07/2018 3:27 AM [facility] MCHC 33.6 32.0 - 36.0 g/dL 12/07/2018 3:27 AM [facility] Platelet Count 252 150 - 400 10 3/uL 12/07/2018 3:27 AM [facility] RDW-SD 39.4 36.0 - 50.0 fL 12/07/2018 3:27 AM [facility] RDW-CV 12.9 11.2 - 14.8 % 12/07/2018 3:27 AM [facility] MPV 9.2(L) 9.3 - 12.8 fL 12/07/2018 3:27 AM [facility] nRBC Absolute 0.00 0 10 3/uL 12/07/2018 3:27 AM [facility] nRBC Auto 0.0 0 /100 WBC 12/07/2018 3:27 AM [facility] Neutrophils % 58.1 35.0 - 70.0 % 12/07/2018 3:27 AM [facility] Lymphocytes % 32.0 19.7 - 55.1 % 12/07/2018 3:27 AM [facility] Monocytes % 6.7 3.0 - 15.0 % 12/07/2018 3:27 AM [facility] Eosinophils % 2.3 0.0 - 6.0 % 12/07/2018 3:27 AM [facility] Basophil % 0.5 0.0 - 1.5 % 12/07/2018 3:27 AM [facility] Neutrophils Absolute 5.4 1.6 - 7.0 10 3/uL 12/07/2018 3:27 AM [facility] Lymphocyte Absolute 3.0(H) 0.8 - 2.9 10 3/uL 12/07/2018 3:27 AM [facility] Monocytes Absolute 0.63 0.14 - 0.66 10 3/uL 12/07/2018 3:27 AM [facility] Eosinophils Absolute 0.22 0.00 - 0.45 10 3/uL 12/07/2018 3:27 AM [facility] Basophils Absolute 0.05 0.00 - 0.06 10 3/uL 12/07/2018 3:27 AM [facility] Immature Granulocytes % 0.4 0.0 - 1.0 % 12/07/2018 3:27 AM [facility] Blood BLOOD SPECIMEN / Unknown Venipuncture / Unknown 12/07/2018 3:18 AM CDT 12/07/2018 3:22 AM CDT Farzana Montiel MD LAB - HEMATOLOGY ORD ERABLES [facility] [address] [phone] * (ABNORMAL) COMPREHENSIVE METABOLIC PANEL (12/07/2018 3:18 AM T) Only the most recent of4 resultswithin the time period is included. BUN 13 7 - 26 mg/dL 12/07/2018 3:43 AM [facility] Creatinine 0.6 0.6 - 1.2 mg/dL 12/07/2018 3:43 AM [facility] Sodium 141 136 - 145 mmol/L 12/07/2018 3:43 AM [facility] Potassium 3.6 3.5 - 4.5 mmol/L 12/07/2018 3:43 AM [facility] Chloride 107 98 - 107 mmol/L 12/07/2018 3:43 AM [facility] CO2 24 22 - 29 mmol/L 12/07/2018 3:43 AM [facility] Glucose 105 70 - 115 mg/dL 12/07/2018 3:43 AM [facility] Calcium 9.2 8.4 - 10.2 mg/dL 12/07/2018 3:43 AM [facility] Protein Total 7.4 6.0 - 8.3 g/dL 12/07/2018 3:43 AM [facility] Albumin 3.6 3.4 - 5.0 g/dL 12/07/2018 3:43 AM [facility] Bilirubin Total 0.4 0.2 - 1.2 mg/dL 12/07/2018 3:43 AM [facility] Alkaline Phosphatase 87 40 - 150 Units/L 12/07/2018 3:43 AM [facility] ALT 18 0 - 55 Units/L 12/07/2018 3:43 AM [facility] AST 18 5 - 34 Units/L 12/07/2018 3:43 AM [facility] Anion Gap 14 8 - 18 12/07/2018 3:43 AM [facility] BUN/Creatinine Ratio 22 7 - 23 12/07/2018 3:43 AM [facility] Osmolality Calculated 292 270 - 300 mOsm/kg 12/07/2018 3:43 AM [facility] Albumin/Globulin Ratio 0.9(L) 1.1 - 2.3 12/07/2018 3:43 AM [facility] eGFR >60 >60 mL/min/1.7 3 m2 12/07/2018 3:43 AM [facility] Blood BLOOD SPECIMEN / Unknown Venipuncture / Unknown 12/07/2018 3:18 AM CDT 12/07/2018 3:22 AM CDT Farzana Montile MD LAB - CHEMISTRY [place] Performing Organization Address City/[facility]/ZIP Co de Phone Number [address] [phone] * LIPASE BLOOD (12/07/2018 3:18 AM CDT) Only the most recent of3 resultswithin the time period is included. Lipase 54 8 - 78 Units/L 12/07/2018 3:43 AM T [facility] Blood BLOOD SPECIMEN / Unknown Venipuncture / Unknown 12/07/2018 3:18 AM CDT 12/07/2018 3:22 AM CDT Farzana Montiel MD LAB - CHEMISTRY [place] [address], [facility] [phone] * XR CHEST 2VW (12/07/2018 3:00 AM CDT) Only the most recent of2 resultswithin the time period is included. Anatomical Region Laterality Modality Chest Radiographic [place] ging 12/07/2018 3:20 AM CDT Impressions 12/07/2018 9:15 AM CDT FINDINGS/IMPRESSION: The lungs are clear. There is no focal consolidation, pleural effusion, or pneumothorax. The cardiomediastinal silhouette is normal. The visible bony thorax is intact. Dictated by Ramón Hutchinson MD (Resident). Dr. ROHAN Hector have personally reviewed and interpreted this examination/study. This report was electronically signed by ROHAN BAILON on 12/07/2018 9:15 AM . Narrative 12/07/2018 9:15 AM CDT EXAMINATION: XR CHEST 2VW HISTORY: rib pain COMPARISON: 07/10/2018. Procedure Note Rohan Bailon MD - 12/07/2018 EXAMINATION: XR CHEST 2VW HISTORY: rib pain COMPARISON: 07/10/2018. FINDINGS/IMPRESSION: The lungs are clear. There is no focal consolidation, pleural effusion,or pneumothorax. The cardiomediastinal silhouette is normal. The visiblebony thorax is intact. Dictated by Ramón Hutchinson MD (Resident). Dr. ROHAN Hector have personally reviewed and interpreted this examination/study. This report was electronically signed by ROHAN BAILON on 12/07/2018 9:15 AM . Farzana Montiel MD DIAGNOSTIC IMAGING O RDERABLES * (ABNORMAL) URINALYSIS W/MICROSCOPIC NO CULTURE (12/06/2018 11:00 PM CDT) Color UA Straw Straw, Yellow, Colorless 12/06/2018 11:15 PM CDT [facility] Clarity UA Clear Clear, Slt Cloudy 12/06/2018 11:15 PM CDT [facility] Specific [place] UA 1.006 1.005 - 1.030 12/06/2018 11:15 PM CDT [facility] pH UA 6.0 5.0 - 8.0 pH 12/06/2018 11:15 PM CDT [facility] Protein UA Negative Negative mg/dL 12/06/2018 11:15 PM CDT [facility] Glucose UA Negative Negative mg/dL 12/06/2018 11:15 PM [facility] Ketone UA Negative Negative mg/dL 12/06/2018 11:15 PM [facility] Bilirubin UA Negative Negative mg/dL 12/06/2018 11:15 PM [facility] Blood UA 1+(A) Negative 12/06/2018 11:15 PM [facility] Nitrite UA Negative Negative 12/06/2018 11:15 PM [facility] Leukocyte Esterase 1+(A) Negative 12/06/2018 11:15 PM [facility] Urobilinogen UA Negative Negative mg/dL 12/06/2018 11:15 PM [facility] RBC UA 0-2 None Seen, 0-2, 3-5 /HPF 12/06/2018 11:15 PM [facility] WBC UA 0-5 None Seen, 0-5 /HPF 12/06/2018 11:15 PM [facility] Bacteria UA Trace None, Trace /HPF 12/06/2018 11:15 PM [facility] Squamous Epithelial Cells UA 0-2 None Seen, 0-2 /HPF 12/06/2018 11:15 PM [facility] Mucus UA 1+ None, 1+ /LPF 12/06/2018 11:15 PM [facility] Urine URINE SPECIMEN OBTAINED BY CLEAN CATCH PROCEDURE / Unknown 12/06/2018 11:00 PM CDT 12/06/2018 11:06 PM CDT Farzana Montiel MD LAB - URINALYSIS ORD ERABLES [address] [phone] * CULTURE URINE (12/06/2018 11:00 PM CDT) Culture Urine 10,000-50,000 CFU/mL urogenital [facility] GALO 12/08/2018 2:50 PM CDT [facility] Urine URINE SPECIMEN OBTAINED BY CLEAN CATCH PROCEDURE / Unknown 12/06/2018 11:00 PM CDT 12/06/2018 11:06 PM CDT Dory Hernández BLOGS MANAGER-BRAND ADVISOR LAB - MICROBIO LOGY ORDERABLES [facility] [address] [place] [address], [facility] [phone] * CT CHEST PE W ABD PELVIS W CONT (07/11/2018 1:10 AM JUNIOR STAFF ACCOUNTANT) Anatomical Region Laterality Modality Chest, Abdomen, Pelvis Computed Tomography 07/11/2018 1:12 AM JUNIOR STAFF ACCOUNTANT Impressions 07/11/2018 9:21 AM JUNIOR STAFF ACCOUNTANT IMPRESSION: 1. No CT evidence of pulmonary embolism. 2. No acute process identified in the abdomen or pelvis. 3. Mild colonic diverticulosis without evidence of acute diverticulitis. Dictated by Terry Estevez MD (limited radiology technician). I, Dr. CARLO MCDONALD M.D. have personally reviewed and interpreted this examination/study. This report was electronically signed by CARLO MCDONALD M.D. on 07/11/2018 9:21 AM . Narrative 07/11/2018 9:21 AM JUNIOR STAFF ACCOUNTANT EXAMINATION: 1. Computed tomography (CT) of the chest with contrast 2. CT of the abdomen and pelvis with contrast HISTORY: Chest pain and paresthesias TECHNIQUE: CT of the chest was performed following the uneventful administration of 100 mL of Isovue-370 intravenous contrast according to a pulmonary embolism protocol. CT of the abdomen and pelvis was also performed during the portal venous phase according to standard protocol. COMPARISON: Comparison is made with a CT abdomen pelvis dated 06/02/2016. FINDINGS: Chest: There are no filling defects in the pulmonary arteries to suggest pulmonary embolism. The main pulmonary artery is normal in course and caliber. There is a left-sided three-vessel aortic arch. The aorta and main pulmonary arteries are normal in course and caliber. Mild bilateral dependent atelectasis is present. Otherwise no focal consolidation is seen. No pleural effusion or focal pleural thickening is identified. There is no evidence of pneumothorax. No suspicious pulmonary nodule is identified. The trachea is patent and midline. The heart size is normal. No pericardial effusion is present. No mediastinal, hilar, supraclavicular, or axillary lymphadenopathy is seen. Abdomen/pelvis: The liver enhances homogenously. The gallbladder is normal without evidence of wall thickening, pericholecystic fluid, or gallstones. The intrahepatic and extrahepatic bile ducts are nondilated. The spleen enhances homogenously without focal lesion. The pancreas and adrenal glands are normal. A subcentimeter low attenuating lesion in the right kidney is too small to characterize but likely represents a cyst. Otherwise the kidneys enhance symmetrically. There is no evidence of renal calculus or hydronephrosis. Contrast material opacifies the renal collecting system bilaterally and the dependent portion of the urinary bladder. The esophagus and stomach appear normal. There is mild colonic diverticulosis without evidence of diverticulitis. Otherwise the small bowel and large bowel are normal in caliber without evidence of wall thickening or obstruction. The appendix appears normal without appendicolith or surrounding inflammatory changes. No free air or free fluid is identified within the abdomen. There is no abdominal lymphadenopathy. The urinary bladder is distended with fluid and appears normal. The uterus is normal. No free fluid is seen within the pelvis. There is no pelvic lymphadenopathy. Bone windows demonstrate no suspicious lytic or blastic lesions. The visible osseous structures are intact. Procedure Note Carlo Mcdonald MD - 07/11/2018 EXAMINATION: 1. Computed tomography (CT) of the chest with contrast 2. CT of the abdomen and pelvis with contrast HISTORY: Chest pain and paresthesias TECHNIQUE: CT of the chest was performed following the uneventful administration of 100 mL of Isovue-370 intravenous contrast according toa pulmonary embolism protocol. CT of the abdomen and pelvis was also performed during the portal venous phase according to standard protocol. COMPARISON: Comparison is made with a CT abdomen pelvis dated108/02/2015. FINDINGS: Chest: There are no filling defects in the pulmonary arteries to suggest pulmonary embolism. The main pulmonary artery is normal in course and caliber. There is a left-sided three-vessel aortic arch. The aorta and main pulmonary arteries are normal in course and caliber. Mild bilateral dependent atelectasis is present. Otherwise no focal consolidation is seen. No pleural effusion or focal pleural thickeningis identified. There is no evidence of pneumothorax. No suspiciouspulmonary nodule is identified. The trachea is patent and midline. The heart size is normal. No pericardial effusion is present. No mediastinal, hilar, supraclavicular, or axillary lymphadenopathy isseen. Abdomen/pelvis: The liver enhances homogenously. The gallbladder is normal without evidence of wall thickening, pericholecystic fluid, or gallstones. The intrahepatic and extrahepatic bile ducts are nondilated. The spleen enhances homogenously without focal lesion. The pancreas and adrenal glands are normal. A subcentimeter low attenuating lesion in the right kidney is too small to characterize but likely represents a cyst. Otherwise the kidneys enhance symmetrically. There is no evidence ofrenal calculus or hydronephrosis. Contrast material opacifies the renal collecting system bilaterally and the dependent portion of the urinary bladder. The esophagus and stomach appear normal. There is mild colonic diverticulosis without evidence of diverticulitis. Otherwise the small bowel and large bowel are normal in caliber without evidence of wall thickening or obstruction. The appendix appears normal without appendicolith or surrounding inflammatory changes. No free air or free fluid is identified within the abdomen. There is no abdominal lymphadenopathy. The urinary bladder is distended with fluid and appears normal. Theuterus is normal. No free fluid is seen within the pelvis. There is no pelvic lymphadenopathy. Bone windows demonstrate no suspicious lytic or blastic lesions. The visible osseous structures are intact. IMPRESSION: 1. No CT evidence of pulmonary embolism. 2. No acute process identified in the abdomen or pelvis. 3. Mild colonic diverticulosis without evidence of acute diverticulitis. Dictated by Terry Estevez MD (limited radiology technician). IDr. CARLO M.D. have personally reviewed and interpretedthis examination/study. This report was electronically signed by CARLO MCDONALD M.D. on07/11/2018 9:21 AM . Giles Oliver MD CT ORDERABLES * CT ANGIO BRAIN AND NECK (07/11/2018 1:10 AM JUNIOR STAFF ACCOUNTANT) Anatomical Region Laterality Modality Head Computed Tomogra phy 07/11/2018 1:28 AM JUNIOR STAFF ACCOUNTANT Impressions 07/11/2018 8:20 AM JUNIOR STAFF ACCOUNTANT IMPRESSION: 1. No acute intracranial hemorrhage. 2. No large arterial occlusions or significant stenoses identified in the head or neck. 3. The left thyroid lobe is slightly larger than the right and demonstrates heterogeneous density. 1.3 x 1.2 cm left thyroid nodule with thick smooth marginal calcification, likely benign. Dr. LYNNETTE Hector have personally reviewed and interpreted this examination/study. This report was electronically signed by LYNNETTE MAN on 07/11/2018 8:20 AM . Narrative 07/11/2018 8:20 AM JUNIOR STAFF ACCOUNTANT EXAMINATION: 1. Computed tomographic (CT) angiography of the head with contrast 2. CT angiography of the neck with contrast HISTORY: numbness and tingling TECHNIQUE: CT of the head was performed without contrast according to standard protocol. Then CT angiography of the head and neck was obtained after the uneventful administration of 50 mL Isovue 370 intravenous contrast. Three dimensional postprocessing was performed by the technologist and sent to the workstation for review. FINDINGS: Comparison is made with a prior CT head without contrast from 07/10/2018. Non-angiographic findings: No acute intra- or extra-axial fluid collections are identified. The ventricles are of normal size, shape, and morphology. The basilar cisterns are patent. No mass effect or midline shift is seen. The sepulveda-white matter differentiation is normal. The visualized portions of the orbits, paranasal sinuses, and mastoids appear normal. No acute fracture is identified. The left thyroid lobe is slightly larger than the right and demonstrates heterogeneous density and a 1.3 x 1.2 cm nodule with thick smooth marginal calcification. Angiographic findings: The visible aortic arch appears normal. The configuration of the brachiocephalic vessels is typical. The innominate artery and both subclavian arteries appear normal. The right common and internal carotid arteries as well as the right carotid bifurcation appear normal. The left common and internal carotid arteries as well as the left carotid bifurcation appear normal. The cervical vertebral arteries appear normal. The distal internal carotid arteries appear normal. The anterior and middle cerebral arteries appear normal. The distal vertebral arteries appear normal. The basilar artery and posterior cerebral arteries appear normal with origin of both posterior cerebral arteries. No aneurysms, vascular occlusions, or intracranial stenoses are identified. Procedure Note Lynnette Man MD - 07/11/2018 EXAMINATION: 1. Computed tomographic (CT) angiography of the head with contrast 2. CT angiography of the neck with contrast HISTORY: numbness and tingling TECHNIQUE: CT of the head was performed without contrast according to standard protocol. Then CT angiography of the head and neck was obtained after the uneventful administration of 50 mL Isovue 370 intravenous contrast. Three dimensional postprocessing was performed by the technologist and sent to the workstation for review. FINDINGS: Comparison is made with a prior CT head without contrast from 07/10/2018. Non-angiographic findings: No acute intra- or extra-axial fluid collections are identified. The ventricles are of normal size, shape, and morphology. The basilarcisterns are patent. No mass effect or midline shift is seen. The sepulveda-whitematter differentiation is normal. The visualized portions of the orbits, paranasal sinuses, and mastoids appear normal. No acute fracture is identified. The left thyroid lobe is slightly larger than the right and demonstrates heterogeneous density and a 1.3 x 1.2 cm nodule with thick smoothmarginal calcification. Angiographic findings: The visible aortic arch appears normal. The configuration of the brachiocephalic vessels is typical. The innominate artery and both subclavian arteries appear normal. The right common and internal carotid arteries as well as the right carotid bifurcation appear normal. Theleft common and internal carotid arteries as well as the left carotid bifurcation appear normal. The cervical vertebral arteries appearnormal. The distal internal carotid arteries appear normal. The anterior and middle cerebral arteries appear normal. The distal vertebral arteries appear normal. The basilar artery and posterior cerebral arteries appear normal with origin of both posterior cerebral arteries. No aneurysms, vascular occlusions, or intracranial stenoses are identified. IMPRESSION: 1. No acute intracranial hemorrhage. 2. No large arterial occlusions or significant stenoses identified inthe head or neck. 3. The left thyroid lobe is slightly larger than the right and demonstrates heterogeneous density. 1.3 x 1.2 cm left thyroid nodulewith thick smooth marginal calcification, likely benign. IDr. LYNNETTE have personally reviewed and interpreted this examination/study. This report was electronically signed by LYNNETTE MAN on 07/11/2018 8:20 AM. Giles Oliver MD CT ORDERABLES * CT HEAD WO CONTRAST (07/10/2018 10:47 PM JUNIOR STAFF ACCOUNTANT) Only the most recent of2 resultswithin the time period is included. Anatomical Region Laterality Modality Head Computed Tomogra phy 07/10/2018 10:5 0 PM JUNIOR STAFF ACCOUNTANT Impressions 07/11/2018 8:12 AM JUNIOR STAFF ACCOUNTANT IMPRESSION: 1. No acute intracranial process. IDr. LYNNETTE have personally reviewed and interpreted this examination/study. This report was electronically signed by LYNNETTE MAN on 07/11/2018 8:12 AM . Narrative 07/11/2018 8:12 AM JUNIOR STAFF ACCOUNTANT EXAMINATION: Computed tomography (CT) of the head without contrast HISTORY: focal neuro deficits TECHNIQUE: CT of the head was performed without contrast according to standard protocol. FINDINGS: Comparison is made with a prior head CT from 02/21/2017 No acute intra- or extra-axial fluid collections are identified. The ventricles are of normal size, shape, and morphology. The basilar cisterns are patent. No mass effect or midline shift is seen. The sepulveda-white matter differentiation is normal. The visualized portions of the orbits, paranasal sinuses, and mastoids appear normal. No acute fracture is identified. Procedure Note Lynnette Man MD - 07/11/2018 EXAMINATION: Computed tomography (CT) of the head without contrast HISTORY: focal neuro deficits TECHNIQUE: CT of the head was performed without contrast according to standard protocol. FINDINGS: Comparison is made with a prior head CT from 02/21/2017 No acute intra- or extra-axial fluid collections are identified. The ventricles are of normal size, shape, and morphology. The basilarcisterns are patent. No mass effect or midline shift is seen. The sepulveda-whitematter differentiation is normal. The visualized portions of the orbits, paranasal sinuses, and mastoids appear normal. No acute fracture is identified. IMPRESSION: 1. No acute intracranial process. I, Dr. LYNNETTE MAN have personally reviewed and interpreted this examination/study. This report was electronically signed by LYNNETTE MAN on 07/11/2018 8:[address] AM. Giles Oliver MD CT ORDERABLES * (ABNORMAL) D-DIMER (07/10/2018 10:10 PM JUNIOR STAFF ACCOUNTANT) D-Dimer Quantitative 1.14(H) <=0.50 mcg/mL FEU 07/10/2018 10:38 PM JUNIOR STAFF ACCOUNTANT [facility] Comment: In the absence of clinical symptoms, a value less than or equal to 0.5 mcg/mL FEU significantly decreases the probability of PE/DVT (negative predictive value >95%). 1 mcg/mL FEU = 1 Fibrinogen Equivalent Unit (approximates 0.5 mcg/ml of D- Dimer). ISTH DIAGNOSTIC SCORING SYSTEM FOR DIC Score 0 1 2 3 Platelet Count(x10^3/uL) > 100 < 100 < 50 N/A PT Prolongation above upper limit of normal 0-3 3-6 > 6 N/A range (seconds) Fibrinogen (mg/dL) > 100 < 100 N/A N/A D-Dimer (mcg/mL FEU) < 0.50 N/A 0.50-5.0 > 5 Calculate Cumulative Score: > or = 5 :compatible with overt DIC < 5 :suggestive for non-overt DIC N/A = Non applicable Reference: Br. J. Haematol. 145:24-33,2009. Blood BLOOD SPECIMEN / Unknown Venipuncture / Unknown 07/10/2018 10:10 PM JUNIOR STAFF ACCOUNTANT 07/10/2018 10:13 PM JUNIOR STAFF ACCOUNTANT Giles Oliver MD LAB - COAGULATION O RDERABLES Performing Organization Address [facility]/ZIP Co de Phone Number [address] [phone] * EKG 12-LEAD (07/10/2018 8:20 PM JUNIOR STAFF ACCOUNTANT) Only the most recent of3 resultswithin the time period is included. Ventricular Rate 68 BPM [facility] Atrial Rate 68 BPM [facility] P-R Interval 160 ms [facility] QRS Duration ms 72 ms [facility] Q-T Interval ms 414 ms [facility] QTC Calculation (Bezet) 440 ms [facility] Calculated P [place] 50 degrees [facility] Calculated R [place] -8 degrees [facility] Calculated T [place] 12 degrees [facility] Interpretation EKG NORMAL SINUS RHYTHM CANNOT RULE OUT ANTERIOR INFARCT (CITED ON OR BEFORE 10-JUL-2018) BORDERLINE ECG WHEN COMPARED WITH ECG OF 21-FEB-2017 14:13, NO SIGNIFICANT CHANGE WAS FOUND Confirmed by Christopher WISDOM STEVEN ([id number]), mapping editor DWAYNE MC ([id number]) on 07/29/2018 12:06:10 PM [facility] 07/10/2018 8:20 PM JUNIOR STAFF ACCOUNTANT 07/29/2018 12:06 PM JUNIOR STAFF ACCOUNTANT Giles Oliver MD ECG ORDERABLES Performing Organization Address [facility]/ZIP Co de Phone Number [facility] * (ABNORMAL) URINALYSIS REFLEX TO MICROSCOPIC NO CULTURE (02/21/2017 5:39 PM CDT) Only the most recent of2 resultswithin the time period is included. Color UA Yellow Straw, Yellow, Colorless, Light Yellow [facility] Clarity UA Clear Clear [facility] Specific [place] UA 1.004 1.001 - 1.030 [facility] pH UA 6.5 5.0 - 8.0 [facility] Protein UA Negative <=20 mg/dL [facility] Glucose UA Negative Negative mg/dL [facility] Ketone UA Negative Negative mg/dL [facility] Bilirubin UA Negative Negative mg/dL [facility] Blood UA Negative Negative [facility] Nitrite UA Negative Negative [facility] Leukocyte Esterase Small(A) Negative [facility] Urobilinogen UA <2.0 <2.0 mg/dL [facility] RBC UA 1 0 - 8 /HPF [facility] WBC UA 4(H) 0 - 2 /HPF [facility] Squamous Epithelial Cells UA <1 0 - 1 /HPF [facility] Renal Epithelial UA <1 0 - 1 /HPF [facility] Urine specimen (specimen) 02/21/2017 5:39 PM CDT 02/21/2017 5:46 PM CDT Moe Smith MD LAB - URINALYSIS ORDERABLES Performing Organization Address City/State/[facility] Co de Phone Number [address] [phone] * CT LUMBAR SPINE WO CONTRAST (06/02/2016 5:34 PM JUNIOR STAFF ACCOUNTANT) Anatomical Region Laterality Modality Spine Other Impressions 06/03/2016 10:23 AM JUNIOR STAFF ACCOUNTANT IMPRESSION: 1. No evidence of acute fracture in the lumbar spine. I, Dr. EVIE CHANDLER M.D. have personally reviewed and interpreted this examination/study. This report was electronically signed by EVIE CHANDLER M.D. on 06/03/2016 10:23 AM . Narrative 06/03/2016 10:23 AM JUNIOR STAFF ACCOUNTANT EXAMINATION: Computed tomography (CT) of the lumbar spine without contrast HISTORY: Abdominal and back pain. TECHNIQUE: CT of the lumbar spine was performed without contrast according to standard protocol. FINDINGS: No prior study is available for comparison at the time of this dictation. The alignment is normal. Vertebral bodies are normal in height without evidence of acute fracture. Mild degenerative disc disease at L5-S1 is present. No central canal stenosis is seen. The facets appear normal. No neural foraminal stenosis is seen. Assess arthritis of the sacroiliac joints is noted. No soft tissue abnormality is identified. Procedure Note Evie Chandler MD - 10/08/2017 EXAMINATION: Computed tomography (CT) of the lumbar spine withoutcontrast HISTORY: Abdominal and back pain. TECHNIQUE: CT of the lumbar spine was performed without contrast accordingto standard protocol. FINDINGS: No prior study is available for comparison at the time of thisdictation. The alignment is normal. Vertebral bodies are normal in height withoutevidence of acute fracture. Mild degenerative disc disease at L5-S1 ispresent. No central canal stenosis is seen. The facets appear normal. Noneural foraminal stenosis is seen. Assess arthritis of the sacroiliac joints is noted. No soft tissueabnormality is identified. IMPRESSION IMPRESSION: 1. No evidence of acute fracture in the lumbar spine. Dr. EVIE Hector M.D. have personally reviewed and interpreted thisexamination/study. This report was electronically signed by EVIE CHANDLER M.D. on 06/03/201610:23 AM . Michele Lunsford MD CT ORDERABLES * XR LUMBAR SPINE 2 OR 3VW (06/02/2016 4:27 PM JUNIOR STAFF ACCOUNTANT) Anatomical Region Laterality Modality Spine Other Impressions 06/03/2016 7:21 AM JUNIOR STAFF ACCOUNTANT IMPRESSION: Normal spinal alignment. No gross compression deformity. Dictated by Александр Mccoy MD (limited radiology technician). Dr. IVETTE Hector M.D. have personally reviewed and interpreted this examination/study. This report was electronically signed by IVETTE QIU M.D. on 06/03/2016 7:21 AM . Narrative 06/03/2016 7:21 AM JUNIOR STAFF ACCOUNTANT EXAMINATION: XR SPINE LUMBAR 2 OR 3 VW HISTORY: Right-sided abdominal and back pain. COMPARISON: No prior study is available for comparison. FINDINGS: The vertebral bodies are normally aligned. There is no gross compression deformity. Mild degenerative disc disease is present at L5-S1. Mild lower lumbar facet osteoarthritis is present. The sacroiliac joints are normal. A wire and partially imaged thin radiopacity in the right upper quadrant identified. These may be external to the patient as no correlate is seen on the lateral view. Procedure Note Ivette Qiu MD - 10/08/2017 EXAMINATION: XR SPINE LUMBAR 2 OR 3 VW HISTORY: Right-sided abdominal and back pain. COMPARISON: No prior study is available for comparison. FINDINGS: The vertebral bodies are normally aligned. There is no gross compressiondeformity. Mild degenerative disc disease is present at L5-S1. Mild lowerlumbar facet osteoarthritis is present. The sacroiliac joints are normal.A wire and partially imaged thin radiopacity in the right upper quadrant identified. These may be externalto the patient as no correlate is seen on the lateral view. IMPRESSION IMPRESSION: Normal spinal alignment. No gross compression deformity. Dictated by Александр Mccoy MD (limited radiology technician). I, Dr. IVETTE QIU M.D. have personally reviewed and interpreted thisexamination/study. This report was electronically signed by IVETTE QIU M.D. on06/03/2016 7:21 AM . Michele Lunsford MD DIAGNOSTIC IMAGING O RDERABLES * CK + CKMB PANEL (06/02/2016 3:32 PM JUNIOR STAFF ACCOUNTANT) CK Total 165 30 - 200 Units/L [facility] CK-MB 3.1 0.0 - 6.6 ng/mL [facility] Blood specimen (specimen) BLOOD SPECIMEN / Unknown 06/02/2016 3:32 PM JUNIOR STAFF ACCOUNTANT 06/02/2016 3:36 PM JUNIOR STAFF ACCOUNTANT Michele Lunsford MD LAB - CHEMISTRY [facility] [facility] Organization Address City/State/ZIP Co de Phone Number [facility] [address] [place] [phone] [place] [address] Care Teams Bar Tender Relationship Specialty Start Date End Date [facility] [address] [place] [id number] PCP - General Sap Hana Developer 07/10/18
[2024-09-09 22:03] VITALS: BP 200/71; PULSE 79; RESP 17; TEMP 36.3; O2SAT 99
[2024-09-09 22:50] LABS: Basophils Percent Auto 0.5 % (0.2-1.2); Eosinophils Absolute Auto 0.2 K/mm3 (0-0.3); Eosinophils Percent Auto 2.6 % (0-4.4); Hematocrit 40.3 % (37.0-47.0); Hemoglobin 13.4 g/dL (12.0-15.0); Immature Granulocyte Absolute 0.03 K/mm3 (0.00-0.031); Immature Granulocyte Percent A 0.4 % (0-0.5); Lymphocytes Absolute Auto 2.48 K/mm3 (0.9-3.2); Lymphocytes Percent Auto 29.8 % (18.3-44.2); Mean Corpuscular HGB Conc 33.3 g/dl (32-36); Mean Corpuscular Hemoglobin 28.1 pg (26-34); Mean Corpuscular Volume 84.5 fl (80-100); Mean Platelet Volume 9.6 fl (7.4-10.4); Monocytes Absolute Auto 0.8 K/mm3 (0.1-0.6); Neutrophils Absolute Auto 4.8 K/mm3 (1.3-6.7); Neutrophils Percent Auto 57.7 % (45.5-73.1); Platelet Count Result 226 k/mm3 (150-375); Red Blood Count 4.77 M/mm3 (4.2-5.4); Red Cell Distribution Width 12.7 % (11.5-14.5); White Blood Count 8.3 K/mm3 (4.5-10.0)
--- OUTSIDE RECORDS SUMMARY | 2024-09-09 22:56 | XMS_ITS | Referral Summary ---
Author Organization [facility] Address [address] [place] [address] Care Team Providers Care Technical System Analyst Name Role Phone [facility] Primary Care Pro vider Source Comments [facility],non-owned Affiliates and Associated Physician Practices is amultiple site organization consisting of ambulatory clinics and hospital sitesin [place], [place]. This disclosure is being madepursuant to the Care Everywhere program and may not contain all information available regarding this patient. Last updated 18.[facility] [facility] Allergies No known active allergies Medications * [...] of Treatment Not on file Care Teams Technical System Analyst Relationship Specialty Start Date End Date Clinicp, [facility] [address] [place] [phone] PCP - General Internet Researcher 07/10/18
--- OUTSIDE RECORDS SUMMARY | 2024-09-09 22:56 | XMS_ITS | Patient Health Summary ---
Author Organization [facility] Address [address] [facility] [place] [address] Care Team Providers Care Chart Snatcher Name Role Phone [facility] C Primary Care Pro vider Note from [facility],non-owned Affiliates and Associated Physician Practices is amultiple site organization consisting of ambulatory clinics and hospital sitesin [place], [place], [place] and [place]. This disclosure is being madepursuant to the Care Everywhere program and may not contain all information available regarding this patient. Last updated 18.[facility] Allergies No known active allergies Medications * [...] or pelvis. Dictated by Ramón Hutchinson MD (resident physician). I, Dr. Jose BRYAN M.D. have personally [...] or pelvis. Dictated by Ramón Hutchinson MD (resident physician). I, Dr. Jose BRYAN M.D. have personally reviewed and interpretedthis examination/study. This report was electronically signed by Jose BRYAN M.D. on 12/07/2018 9:54 AM . Farzana Montiel MD CT ORDERABLES * TROPONIN I (12/07/2018 3:18 AM CDT) Only the most recent of3 resultswithin the time period is included. [facility] Troponin I <0.010 <0.032 ng/mL 12/07/2018 3:50 AM [facility] Blood BLOOD SPECIMEN / Unknown Venipuncture / Unknown 12/07/2018 3:18 AM CDT 12/07/2018 3:22 AM CDT Farzana Montiel MD [facility] Organization Address City/State/ZIP Co de Phone Number [address] [phone] * (ABNORMAL) CBC W AUTO DIFFERENTIAL (12/07/2018 3:18 AM CDT) Only the most recent of6 resultswithin the time period is included. [facility] WBC 9.4 3.5 - 10.5 10 3/uL 12/07/2018 3:27 [facility] RBC 4.55 3.90 - 5.00 10 6/uL 12/07/2018 3:27 AM [facility] Hemoglobin 12.9 12.0 - 15.5 g/dL 12/07/2018 3:27 AM [facility] Hematocrit 38.4 35.0 - 45.0 % 12/07/2018 3:27 AM [facility] MCV 84.4 81.0 - 97.0 fL 12/07/2018 3:27 AM [facility] MCH 28.4 28.0 - 34.0 pg 12/07/2018 3:27 AM [facility] MCHC 33.6 32.0 - 36.0 g/dL 12/07/2018 3:27 AM [facility] Platelet Count 252 150 - 400 10 3/uL 12/07/2018 3:27 AM [facility] RDW-SD 39.4 36.0 - 50.0 fL 12/07/2018 3:27 AM [facility] RDW-CV 12.9 11.2 - 14.8 % 12/07/2018 3:27 AM [facility] MPV 9.2(L) 9.3 - 12.8 fL 12/07/2018 3:27 AM [facility] nRBC Absolute 0.00 0 10 3/uL 12/07/2018 3:27 AM [facility] nRBC Auto 0.0 0 /100 WBC 12/07/2018 3:27 AM [facility] Neutrophils % 58.1 35.0 - 70.0 % 12/07/2018 3:27 AM [facility] Lymphocytes % 32.0 19.7 - 55.1 % 12/07/2018 3:27 AM [facility] Monocytes % 6.7 3.0 - 15.0 % 12/07/2018 3:27 AM [facility] Eosinophils % 2.3 0.0 - 6.0 % 12/07/2018 3:27 AM [facility] Basophil % 0.5 0.0 - 1.5 % 12/07/2018 3:27 AM [facility] Neutrophils Absolute 5.4 1.6 - 7.0 10 3/uL 12/07/2018 3:27 AM [facility] Lymphocyte Absolute 3.0(H) 0.8 - 2.9 10 3/uL 12/07/2018 3:27 AM [facility] Monocytes Absolute 0.63 0.14 - 0.66 10 3/uL 12/07/2018 3:27 AM [facility] Eosinophils Absolute 0.22 0.00 - 0.45 10 3/uL 12/07/2018 3:27 AM [facility] Basophils Absolute 0.05 0.00 - 0.06 10 3/uL 12/07/2018 3:27 AM [facility] Immature Granulocytes % 0.4 0.0 - 1.0 % 12/07/2018 3:27 AM [facility] Blood BLOOD SPECIMEN / Unknown Venipuncture / Unknown 12/07/2018 3:18 AM CDT 12/07/2018 3:22 AM CDT Farzana Montiel MD LAB - HEMATOLOGY ORD ERABLES [facility] [address] [phone] * (ABNORMAL) COMPREHENSIVE METABOLIC PANEL (12/07/2018 3:18 AM T) Only the most recent of4 resultswithin the time period is included. BUN 13 7 - 26 mg/dL 12/07/2018 3:43 AM [facility] Creatinine 0.6 0.6 - 1.2 mg/dL 12/07/2018 3:43 AM [facility] Sodium 141 136 - 145 mmol/L 12/07/2018 3:43 AM [facility] Potassium 3.6 3.5 - 4.5 mmol/L 12/07/2018 3:43 AM [facility] Chloride 107 98 - 107 mmol/L 12/07/2018 3:43 AM [facility] CO2 24 22 - 29 mmol/L 12/07/2018 3:43 AM [facility] Glucose 105 70 - 115 mg/dL 12/07/2018 3:43 AM [facility] Calcium 9.2 8.4 - 10.2 mg/dL 12/07/2018 3:43 AM [facility] Protein Total 7.4 6.0 - 8.3 g/dL 12/07/2018 3:43 AM [facility] Albumin 3.6 3.4 - 5.0 g/dL 12/07/2018 3:43 AM [facility] Bilirubin Total 0.4 0.2 - 1.2 mg/dL 12/07/2018 3:43 AM [facility] Alkaline Phosphatase 87 40 - 150 Units/L 12/07/2018 3:43 AM [facility] ALT 18 0 - 55 Units/L 12/07/2018 3:43 AM [facility] AST 18 5 - 34 Units/L 12/07/2018 3:43 AM [facility] Anion Gap 14 8 - 18 12/07/2018 3:43 AM [facility] BUN/Creatinine Ratio 22 7 - 23 12/07/2018 3:43 AM [facility] Osmolality Calculated 292 270 - 300 mOsm/kg 12/07/2018 3:43 AM [facility] Albumin/Globulin Ratio 0.9(L) 1.1 - 2.3 12/07/2018 3:43 AM [facility] eGFR >60 >60 mL/min/1.7 3 m2 12/07/2018 3:43 AM [facility] Blood BLOOD SPECIMEN / Unknown Venipuncture / Unknown 12/07/2018 3:18 AM CDT 12/07/2018 3:22 AM CDT Farzana Montiel MD LAB - CHEMISTRY [place] Performing Organization Address City/[facility]/ZIP Co de Phone Number [address] [phone] * LIPASE BLOOD (12/07/2018 3:18 AM CDT) Only the most recent of3 resultswithin the time period is included. Lipase 54 8 - 78 Units/L 12/07/2018 3:43 AM T [facility] Blood BLOOD SPECIMEN / Unknown Venipuncture / Unknown 12/07/2018 3:18 AM CDT 12/07/2018 3:22 AM CDT Farzana Montiel MD LAB - [place]MI[place] [address], [facility] [phone] * XR CHEST 2VW (12/07/2018 3:00 AM [...] Straw, Yellow, Colorless 12/06/2018 11:15 PM CDT [facility] Clarity UA Clear Clear, Slt Cloudy 12/06/2018 11:15 PM CDT [facility] Specific [place] UA 1.006 1.005 - 1.030 12/06/2018 11:15 PM CDT [facility] pH UA 6.0 5.0 - 8.0 pH 12/06/2018 11:15 PM CDT [facility] Protein UA Negative Negative mg/dL 12/06/2018 11:15 PM CDT [facility] Glucose UA Negative Negative mg/dL 12/06/2018 11:15 PM [facility] Ketone UA Negative Negative mg/dL 12/06/2018 11:15 PM [facility] Bilirubin UA Negative Negative mg/dL 12/06/2018 11:15 PM [facility] Blood UA 1+(A) Negative 12/06/2018 11:15 PM [facility] Nitrite UA Negative Negative 12/06/2018 11:15 PM [facility] Leukocyte Esterase 1+(A) Negative 12/06/2018 11:15 PM [facility] Urobilinogen UA Negative Negative mg/dL 12/06/2018 11:15 PM [facility] RBC UA 0-2 None Seen, 0-2, 3-5 /HPF 12/06/2018 11:15 PM [facility] WBC UA 0-5 None Seen, 0-5 /HPF 12/06/2018 11:15 PM [facility] Bacteria UA Trace None, Trace /HPF 12/06/2018 11:15 PM [facility] Squamous Epithelial Cells UA 0-2 None Seen, 0-2 /HPF 12/06/2018 11:15 PM [facility] Mucus UA 1+ None, 1+ /LPF 12/06/2018 11:15 PM [facility] Urine URINE SPECIMEN OBTAINED BY CLEAN CATCH PROCEDURE / Unknown 12/06/2018 11:00 PM CDT 12/06/2018 11:06 PM CDT Farzana Montiel MD LAB - URINALYSIS ORD ERABLES [address] [phone] * CULTURE URINE (12/06/2018 11:00 PM CDT) Culture Urine 10,000-50,000 CFU/mL [facility] GALO 12/08/2018 2:50 PM CDT [facility] Urine URINE SPECIMEN OBTAINED BY CLEAN CATCH PROCEDURE / Unknown 12/06/2018 11:00 PM CDT 12/06/2018 11:06 PM CDT Dory Hernández FISHING WORKER-HEALTH UNDERWRITER LAB - MICROBIO LOGY ORDERABLES [facility] [address] [place] [address], [facility] [phone] * CT CHEST PE W ABD PELVIS W CONT (07/11/2018 1:10 AM LAPELER) Anatomical Region Laterality Modality Chest, Abdomen, Pelvis Computed Tomography 07/11/2018 1:12 AM LAPEL[facility] Impressions 07/11/2018 9:21 AM [facility] IMPRESSION: 1. No CT evidence of pulmonary embolism. 2. No acute process identified in the abdomen or pelvis. 3. Mild colonic diverticulosis without evidence of acute diverticulitis. Dictated by Terry Estevez MD (resident physician). I, Dr. CARLO MCDONALD M.D. have personally reviewed and interpreted this examination/study. This report was electronically signed by CARLO MCDONALD M.D. on 07/11/2018 9:21 AM . Narrative 07/11/2018 9:21 AM LAP[facility] EXAMINATION: 1. Computed tomography (CT) of the [...] acute diverticulitis. Dictated by Terry Estevez MD (resident physician). IDr. CARLO M.D. have personally reviewed and interpretedthis examination/study. This report was electronically signed by CARLO MCDONALD M.D. on07/11/2018 9:21 AM . Giles Oliver MD CT ORDERABLES * CT ANGIO BRAIN AND NECK (07/11/2018 1:10 AM LAPELER) Anatomical Region Laterality Modality Head Computed Tomogra phy 07/11/2018 1:28 AM LAPELER Impressions 07/11/2018 8:20 AM LAPEL[facility] IMPRESSION: 1. No acute intracranial hemorrhage. 2. [...] 8:20 AM . Narrative 07/11/2018 8:20 AM LAP[facility] EXAMINATION: 1. Computed tomographic (CT) angiography of [...] CT HEAD WO CONTRAST (07/10/2018 10:47 PM LAPELER) Only the most recent of2 resultswithin the time period is included. Anatomical Region Laterality Modality Head Computed Tomogra phy 07/10/2018 10:5 0 PM LAPELER Impressions 07/11/2018 8:12 AM LAP[facility] IMPRESSION: 1. No acute intracranial process. IDr. LYNNETTE have personally reviewed and interpreted this examination/study. This report was electronically signed by LYNNETTE MAN on 07/11/2018 8:12 AM . Narrative 07/11/2018 8:12 AM LAP[facility] EXAMINATION: Computed tomography (CT) of the head [...] ORDERABLES * (ABNORMAL) D-DIMER (07/10/2018 10:10 PM LAPELER) D-Dimer Quantitative 1.14(H) <=0.50 mcg/mL FEU 07/10/2018 10:38 PM LAPELER [facility] Comment: In the absence of [...] Unknown Venipuncture / Unknown 07/10/2018 10:10 PM LAPELER 07/10/2018 10:13 PM LAPELER Giles Oliver MD LAB - COAGULATION O RDERABLES Performing Organization Address [facility]/ZIP Co de Phone Number [address] [phone] * EKG 12-LEAD (07/10/2018 8:20 PM LAPELER) Only the most recent of3 resultswithin the time period is included. Ventricular Rate 68 BPM [facility] Atrial Rate 68 BPM [facility] P-R Interval 160 ms [facility] QRS Duration ms 72 ms [facility] Q-T Interval ms 414 ms [facility] QTC Calculation (Bezet) 440 ms [facility] Calculated P Minter 50 degrees [facility] Calculated R Minter -8 degrees [facility] Calculated T Minter 12 degrees [facility] Interpretation EKG NORMAL SINUS RHYTHM CANNOT RULE OUT ANTERIOR INFARCT (CITED ON OR BEFORE 10-JUL-2018) BORDERLINE ECG WHEN COMPARED WITH ECG OF 21-FEB-2017 14:13, NO SIGNIFICANT CHANGE WAS FOUND Confirmed by Christopher WISDOM STEVEN ([id number]), food editor DWAYNE MC ([id number]) on 07/29/2018 12:06:10 PM [facility] 07/10/2018 8:20 PM LAPELER 07/29/2018 12:06 PM LAPELER Giles Oliver MD ECG ORDERABLES Performing Organization Address [facility]/ZIP Co de Phone Number [facility] * (ABNORMAL) URINALYSIS REFLEX TO MICROSCOPIC NO CULTURE (02/21/2017 5:39 PM CDT) Only the most recent of2 resultswithin the time period is included. Color UA Yellow Straw, Yellow, Colorless, Light Yellow [facility] Clarity UA Clear Clear [facility] Specific [place] UA 1.004 1.001 - 1.030 [facility] pH UA 6.5 5.0 - 8.0 [facility] Protein UA Negative <=20 mg/dL [facility] Glucose UA Negative Negative mg/dL [facility] Ketone UA Negative Negative mg/dL [facility] Bilirubin UA Negative Negative mg/dL [facility] Blood UA Negative Negative [facility] Nitrite UA Negative Negative [facility] Leukocyte Esterase Small(A) Negative [facility] Urobilinogen UA <2.0 <2.0 mg/dL [facility] RBC UA 1 0 - 8 /HPF [facility] WBC UA 4(H) 0 - 2 /HPF [facility] Squamous Epithelial Cells UA <1 0 - 1 /HPF [facility] Renal Epithelial UA <1 0 - 1 /HPF [facility] Urine specimen (specimen) 02/21/2017 5:39 PM CDT 02/21/2017 5:46 PM CDT Moe Smith MD LAB - URINALYSIS ORDERABLES Performing Organization Address City/State/[facility] Co de Phone Number [address] [phone] * CT LUMBAR SPINE WO CONTRAST (06/02/2016 5:34 PM LAPELER) Anatomical Region Laterality Modality Spine Other Impressions 06/03/2016 10:23 AM LAPELER IMPRESSION: 1. No evidence of acute fracture in the lumbar spine. I, Dr. EVIE CHANDLER M.D. have personally reviewed and interpreted this examination/study. This report was electronically signed by EVIE CHANDLER M.D. on 06/03/2016 10:23 AM . Narrative 06/03/2016 10:23 AM LAPELER EXAMINATION: Computed tomography (CT) of the lumbar [...] SPINE 2 OR 3VW (06/02/2016 4:27 PM LAPELER) Anatomical Region Laterality Modality Spine Other Impressions 06/03/2016 7:21 AM LAPELER IMPRESSION: Normal spinal alignment. No gross compression deformity. Dictated by Александр Mccoy MD (resident physician). Dr. IVETTE Hector M.D. have personally reviewed and interpreted this examination/study. This report was electronically signed by IVETTE QIU M.D. on 06/03/2016 7:21 AM . Narrative 06/03/2016 7:21 AM LAPELER EXAMINATION: XR SPINE LUMBAR 2 OR 3 [...] compression deformity. Dictated by Александр Mccoy MD (resident physician). I, Dr. IVETTE QIU M.D. have personally reviewed and interpreted thisexamination/study. This report was electronically signed by IVETTE QIU M.D. on06/03/2016 7:21 AM . Michele Lunsford MD DIAGNOSTIC IMAGING O RDERABLES * CK + CKMB PANEL (06/02/2016 3:32 PM LAPELER) CK Total 165 30 - 200 Units/L [facility] CK-MB 3.1 0.0 - 6.6 ng/mL [facility] Blood specimen (specimen) BLOOD SPECIMEN / Unknown 06/02/2016 3:32 PM LAPELER 06/02/2016 3:36 PM LAPELER Michele Lunsford MD LAB - CHEMISTRY [place] [facility] Organization Address City/State/ZIP Co de Phone Number [facility] [address] [place] [id number] [place] [address] Care Teams Chart Snatcher Relationship Specialty Start Date End Date [facility] [address] [place] [phone] PCP - General Raker Buffing Wheel 07/10/18
--- OUTSIDE RECORDS SUMMARY | 2024-09-09 22:56 | XMS_ITS ---
Author Organization [facility] Address [address] [id number] Phone Care Team Providers Care Gallery Intern Name Role Phone Momo Christopher DO Primary Care Provider [phone] SDOH Coordination Status:Enrolled (Active) Start date:08/10/2024 Enrollment date:08/10/2024 Related social drivers of health:Financial Resource Strain, Depression, Stress, Transportation Needs Overview This program tracks tasks related to outreach for Social Drivers of Health (SDOH). Case Team Name Relationship Phone Fide Leslie(Responsible Staff) Continued Care and Services Coordination
--- OUTSIDE RECORDS SUMMARY | 2024-09-09 22:56 | XMS_ITS | Referral Summary ---
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 There are [...] compared to prior imaging studies performed at [facility] on 09/07/2022, and at [facility] on 09/05/2019 and 08/06/2021. There are [...] Female Attending MD: Myah Akers M.D. Room: [facility] ENDOSCOPY ROOM 8 Note Status: [...] was passed under direct vision. The CF [id number] endoscope was introduced through the anusand [...] On: 02/26/2020 2:10 PM Recognized by the [employer] for promoting quality in endoscopy us Myah Akers MD ENDOSCOPY PROCEDURES F inal Result from Last 3 Months or Most Recently Relevant to Health Maintenance Insurance [employer] [facility] [employer] [facility] Advance Directives For more information, please contact: [phone] * Full Code (Latest Code Status on File) Date Activated Date Inactivated Comments 02/26/2020 12:58 PM 02/26/2020 7:34 PM Care Teams Chief Talent Officer Relationship Specialty Start Date End Date Dorothea Cabrales MD [address] [place] [phone] PCP - General Family Medicine 10/14/23
--- OUTSIDE RECORDS SUMMARY | 2024-09-09 22:56 | XMS_ITS | Clinical Summary ---
Author Organization [facility] Address [address] [place] [address] Care Team Providers Care Char Conveyor Tender Name Role Phone [facility] C Primary Care Pro vider Source Comments [facility],non-owned Affiliates and Associated Physician Practices is amultiple site organization consisting of ambulatory clinics and hospital sitesin [place], [place], [place] and [place]. This disclosure is being madepursuant to the Care Everywhere program and may not contain all information available regarding this patient. Last updated 18.[facility] Allergies No known active allergies Medications * [...] age to complete this topic Care Teams Char Conveyor Tender Relationship Specialty Start Date End Date [facility] [address] [place] [phone] PCP - General Store Clerk Checker 07/10/18
--- OUTSIDE RECORDS SUMMARY | 2024-09-09 22:56 | XMS_ITS | Clinical Summary ---
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 on 09/07/2022, and at [facility] on 09/05/2019 and 08/06/2021. There [...] compared to prior imaging studies performed at [facility] on 09/07/2022, and at [facility] on 09/05/2019 and 08/06/2021. There [...] Female Attending MD: Myah Akers M.D. Room: [facility] ENDOSCOPY ROOM 8 Note Status: Finalized Procedure: [...] was passed under direct vision. The CF [id number] endoscope was introduced through the anusand advanced [...] On: 02/26/2020 2:10 PM Recognized by the [employer] for promoting quality in endoscopy Myah Akers MD ENDOSCOPY PROCEDURES F inal Result from Last 3 Months or Most Recently Relevant to Health Maintenance Insurance [id number] [place] [address] G[employer] [place] [place] [address] [place] [address] Advance Directives For more information, please contact: [phone] * Full Code (Latest Code Status on File) Date Activated Date Inactivated Comments 02/26/2020 12:58 PM 02/26/2020 7:34 PM Care Teams Dietary Services Manager Relationship Specialty Start Date End Date Dorothea Cabrales MD [address] [place] [id number] PCP - General Family Medicine 10/14/23
--- OUTSIDE RECORDS SUMMARY | 2024-09-09 22:56 | XMS_ITS | Clinical Summary ---
Author Organization [facility] Address [address] [id number] Phone Care Team Providers Care Rabbler Name Role Phone Momo Christopher DO Primary Care Provider Allergies No known active allergies Medications Blood [...] 25 Active ergocalciferol (Vitamin D2) 1.25 MG (67219 UT) capsule TAKE 1 CAPSULE BY MOUTH [...] 12/21/2018 Overview (05/28/2022): Note: Urology consult at [facility] (04/28) Anxiety disorder 07/06/2018 Overview (05/28/2022): Note: Unchanged Impaired glucose tolerance 02/02/2018 Overview (05/28/2022): Note: Unchanged Special screening for malignant neoplasms, colon 10/20/2017 Overview (05/28/2022): Note: mamm neg 08/30; Tdap 10/26; Pap 01/25 double neg (repeat 5 yrs) Note: Unchanged - Colonoscopy at [facility] 02/26/2020- tubular adenoma polyp in Cecum. Diverticular [...] Care Team Description 08/24/2024 Patient Outreach [address] [address] Fide Leslie 08/10/2024 Patient Outreach [address] [address] Fide Leslie 08/10/2024 Patient Outreach [address] [address] Fide Leslie 08/08/[address] [phone] Candice Hodges, RN Results 08/07/2024 9:15 AM STRAP STITCHER Office Visit [address] [phone] Momo Christopher, DO Flank pain (Primary Dx); Prediabetes; Screening for osteoporosis; Need for COVID-19 vaccine; Need for prophylactic vaccination and inoculation against influenza; Other fatigue 08/07/2024 Travel 08/06/2024 Telephone [facility] [address] [facility] [place] [address] Momo Christopher DO 06/25/2024 Telephone [facility] [address] [place] [phone] Momo Christopher DO from Last 3 Months [...] phone, visiting friends or family, going to mormonism or club meetings) 5 or more times [...] Clothing No 08/10/19 25 Unable to get: aged or disabled carer No 2024 Unable to get: Other No [...] Comments Blood Pressure 122/72 08/07/2024 11:03 AM STRAP STITCHER Pulse 76 08/07/2024 9:24 AM STRAP STITCHER Temperature 36.8 C (98.2 F) 08/07/2024 9:24 AM STRAP STITCHER Respiratory Rate 16 08/02/2019 9:17 AM STRAP STITCHER Oxygen Saturation 96% 06/15/2023 1:08 PM STRAP STITCHER Inhaled Oxygen Concentration - - Weight 76.9 kg (169 lb 8 oz) 08/07/2024 9:24 AM STRAP STITCHER Height 167.6 cm (5' 6 ) 08/07/2024 9:24 AM STRAP STITCHER Body Mass Index 27.36 08/07/2024 9:24 AM STRAP STITCHER Plan of Treatment Upcoming Encounters Date Type Department Care Team (Late st Contact Info) Description 09/18/2024 2:00 PM CDT Office Visit [facility] [address] [facility] [place] [phone] Momo Christopher DO [address] [place] [address] Health Maintenance Due Date Last Done Comments [...] POCT CHOLESTEROL Routine 08/07/2024 11:3 8 AM STRAP STITCHER Prediabetes POCT HEMOGLOBIN A1C Routine 08/07/2024 1 1:37 AM STRAP STITCHER Prediabetes URINALYSIS, COMPLETE W/REFLEX TO CULTURE Routine 08/07/2024 11:27 AM STRAP STITCHER Flank pain COMPREHENSIVE METABOLIC PANEL Routine 08/07/2024 11:27 AM STRAP STITCHER Other fatigue REFLEXIVE URINE CULTURE Routine 08/07/2024 11:27 AM STRAP STITCHER HM MAMMOGRAPHY Routine 10/26/2023 1:39 PM CDT [...] HEPATITIS PANEL, GENERAL Routine 07/28/2022 1:41 PM STRAP STITCHER Myofascial pain LEGACY COLONSCOPY Routine 02/25/2020 11: 00 PM CDT THINPREP TIS PAP Routine 01/12/2018 3:56 PM CDT from Last 3 Months or Most Recently Relevant to Health Maintenance Results * POCT CHOLESTEROL (08/07/2024 11:38 AM STRAP STITCHER) Glucose 136 mg/dL HDL, POC 75 LDL, Direct POC 90 <100 mg/dL NON-HDL, CHOLESTEROL POC 136 Cholesterol, POC 211 TC/HDL, POC 2.8 > or = 50 mg/dL Triglycerides, POC 228 0-149 mg/dL Blood Venous blood specimen / Unknown 08/07/2024 11:38 AM STRAP STITCHER us Conner Guzman MD POINT OF CARE TEST ENTER/MARIA DEL ROSARIO T ORDERABLES Final Result * (ABNORMAL) POCT HEMOGLOBIN A1C Manually Resulted (08/07/2024 11:37 AM STRAP STITCHER) HEMOGLOBIN A1C 6.1(A) <=5.8 % Blood Venous blood specimen / Unknown 08/07/2024 11:37 AM STRAP STITCHER us Conner Guzman MD POINT OF CARE TEST ENTER/MARIA DEL ROSARIO T ORDERABLES Final Result * REFLEXIVE URINE CULTURE (08/07/2024 11:27 AM STRAP STITCHER) URINE CULTURE SEE NOTE Comment:NO CULTURE INDICATED 08/07/2024 11:2 7 AM STRAP STITCHER 08/07/2024 11:27 AM STRAP STITCHER Conner Guzman MD LAB MICROBIOLOGY - GENERAL O RDERABLES Final Result Performing Organization Address [facility] de Phone Number [facility] * URINALYSIS, COMPLETE W/REFLEX TO CULTURE (08/07/2024 11:27 AM STRAP STITCHER) COLOR URINE YELLOW YELLOW APPEARANCE URINE CLEAR [...] catch procedure / Unknown 08/07/2024 11:27 AM STRAP STITCHER 08/07/2024 11:27 AM STRAP STITCHER Conner Guzman MD LAB URINE ORDERABLES Final R esult Performing Organization Address [facility] de Phone Number [facility] * (ABNORMAL) Comprehensive metabolic panel (08/07/2024 11:27 AM STRAP STITCHER) GLUCOSE 111(H) 65 - 99 mg/dL [facility] [...] blood specimen / Unknown 08/07/2024 11:27 AM STRAP STITCHER 08/07/2024 11:27 AM STRAP STITCHER Conner Guzman MD LAB BLOOD ORDERABLES Final R esult [facility] [address] [place] [address], * Hm Mammography (10/26/2023 1:39 PM CDT) [...] evaluated with computer assisted technology. PERFORMED BY [employer] Comment: MANJIT, CT(ASCP) CT screening location: [place] [address] [place] [address] (ALWAYS MESSAGE) [facility] [employer] Comment: EXPLANATORY NOTE: The Pap is a [...] HPV mRNA E6/E7 Not Detected Not Detected [facility] [place] Comment: Methodology: Bakery Worker Conveyor Line-Mediated Amplification This assay detects E6/E7 viral messenger RNA (mRNA) from 14 high-risk HPV types (16,18,31,33,35,39,45,51,52,56,58,59,66,68). Cervical sources are required for HPV testing. If a vaginal source from a patient who has had a total hysterectomy with removal of cervix was submitted, please contact the testing laboratory for alternative testing options. For additional information, please refer to http://[employer]avel Law/faq/QSJ950w1 (This link if provided for information/ educational purposes only.) Swab 09/27/2022 11:1 9 AM CDT 09/28/2022 12:29 AM CDT Fozia Friedman MD LAB CYTOLOGY ORDERABLES Fin al Result [facility] [address] [place] [address], [employer] * (ABNORMAL) HEPATITIS PANEL, GENERAL (07/28/2022 1:41 PM STRAP STITCHER) HEPATITIS A AB REACTIVE( A) NON-REACT [facility] [place] Comment: For additional information, please refer to http://[employer]/faq/NNV972 (This link is being provided for informational/ educational purposes only.) HEPATITIS B SURF AB NON-REACT ROHAN NON-REACT [facility] [place] HEPATITIS B SURFACE AG NON-REACT ROHAN NON-REACT [facility] [place] HEPATITIS B CORE AB NON-REACT [...] a test for HCV RNA (test code 16181) is suggested. For additional information please refer to http://education.[employer]/faq/ARC94p7 (This link is being provided for informational/ educational purposes only.) Blood Venous blood specimen / Unknown 07/28/2022 1:41 PM STRAP STITCHER 07/28/2022 7:50 PM STRAP STITCHER Dorothea Cabrales MD LAB BLOOD ORDERABLES Final Resu lt [facility] [address] [place] [address], * Legacy Colonoscopy (02/25/2020 11:00 PM CDT) [...] For reports prior to 07/11/2018, reference [facility] Conversion Provider ENDOSCOPY PROCEDURE ORDERABLES Final [...] Recently Relevant to Health Maintenance Care Teams Rabbler Relationship Specialty Start Date End Date Momo Christopher DO [address] [place] [id number] PCP - General Family Medicine 01/11/24
[2024-09-09 23:00] LABS: Alanine Aminotransferase 25 U/L (6-35); Albumin Level 4.6 g/dL (3.5-5.1); Alkaline Phosphatase 123 U/L (38-126); Anion Gap 8 mmol/L (4-12); Aspartate Amino Transferase 34 U/L (14-36); Bilirubin,Total 0.3 mg/dL (0.2-1.3); Blood Urea Nitrogen 12 mg/dL (7-17); Calcium 9.2 mg/dL (8.4-10.2); Carbon Dioxide 31 mmol/L (22-30); Chloride 102 mmol/L (98-107); Estimated CRCL calculation 68 ml/min; Estimated Glomerular Filt Rate > 60; Glucose 103 mg/dL (65-110); Lipase 199 U/L (23-300); Potassium 4.1 mmol/L (3.4-5.0); Sodium 141 mmol/L (137-145)
[2024-09-09 23:03] LABS: Add Urine Microscopic? YES; Appearance Urine Clear (Clear); Bacteria Urine None Seen /hpf; Bilirubin Urine Negative (Negative); Blood Urine Negative (Negative); Color Urine Yellow (Yellow); Glucose Urine UA Negative (Negative); Ketones Urine Negative (Negative); Leukocyte Esterase Ur 1+ LEU/UL (Negative); Need Manual Microscopic Reviewed; Nitrate Urine Negative (Negative); Non Pathogenic Casts 0-2; Protein Urine Negative (Negative); RBC Urine 0-2 /hpf (0-2); Specific Grav Ur 1.009 (1.001-1.035); Squamous Epithelial Cell Urine None Seen /hpf (Few); Urobilinogen Urine 0.2 mg/dL (<2.0); WBC Urine 0-5 /hpf (0-3)
--- NOTE | 2024-09-09 23:22 | PC.NURSE ---
care and report given to Marni, RN. all questions answered.
--- NOTE | 2024-09-09 23:28 | PC.NURSE ---
Report received from DANNY Wolff. Assumed care of patient at this time.
--- NOTE | 2024-09-09 23:46 | ED.ABDPAIN ---
HPI - Abdominal Pain General Chief Complaint: Urogenital-Female Stated Complaint: Right flank pain Time Seen by Provider: 09/09/24 22:19 Source: patient Mode of arrival: ambulatory Limitations: language barrier History of Present Illness HPI narrative: This is a 64-year-old female that presents to the emergency department for right upper quadrant abdominal pain. Reports pain in the right flank as well. This is been ongoing intermittently over the last month. Denies fevers, vomiting, diarrhea Related Data Allergies Allergy/AdvReac Type Severity Reaction Status Date / Time No Known Allergies Allergy Verified 08/11/23 09:46 Review of Systems Review of Systems: CONSTITUTIONAL: Denies fever GASTROINTESTINAL: Reports abdominal pain. Denies nausea, vomiting, or diarrhea. GENITOURINARY: Denies dysuria All systems reviewed & are unremarkable except as noted in HPI and below PMFSH Surgical History Surgical History (Updated 09/09/24 @ 23:48 by Farzana Tirado PA-C) History of appendectomy Social History Social History (Updated 09/09/24 @ 23:48 by Farzana Tirado PA-C) Smoking status: Never smoker Exam Narrative: GENERAL: Well-appearing, well-nourished, and in no acute distress. HEAD: Normocephalic, atraumatic. EYES: EOMI. CHEST: Clear to auscultation. No respiratory distress. No wheezes rales or rhonchi HEART: Regular rate and rhythm. No murmur heard. Normal peripheral pulses. ABDOMEN: Soft, nontender, nondistended, normal active bowel sounds. EXTREMITIES: Normal range of motion. No edema. SKIN: Warm, dry, no rash. NEURO: No focal deficits. Alert and oriented x3. PSYCH: Normal mood and affect Course Course Emergency Course: Patient updated on workup. Resting comfortably Vital Signs Vital signs: Vital Signs Temperature 97.4 F L 09/09/24 22:03 Pulse Rate 79 09/09/24 22:03 Respiratory Rate 17 09/09/24 22:03 Blood Pressure 200/71 H 09/09/24 22:03 Pulse Oximetry 99 09/09/24 22:03 Oxygen Delivery Room Air 09/09/24 22:03 Temperature 97.4 F L 09/09/24 22:03 Pulse Rate 65 09/10/24 02:22 Respiratory Rate 17 09/10/24 02:22 Blood Pressure 116/75 09/10/24 02:22 Pulse Oximetry 99 09/10/24 02:22 Oxygen Delivery Room Air 09/09/24 22:03 MDM - Abdominal Pain MDM Narrative Medical decision making narrative: Patient presents to the emergency department for right upper quadrant abdominal pain/flank pain. She is afebrile and nontoxic appearing. Hypertensive upon arrival, this normalized with management of her pain. Cbc without leukocytosis. Metabolic panel without concerning findings. Lipase is normal. Urine without evidence of infection. CT abdomen and pelvis is without acute findings. Patient family updated on workup. She is to follow up with primary provider. She was given warnings to return the ER Differential Diagnosis Differential diagnosis: Likely calculus of kidney, gastroenteritis, pancreatitis and other (biliary colic, GERD, gastritis) Lab Data Attestation: I reviewed the patient's lab results. 09/09/24 22:42 09/09/24 22:43 Labs: Lab Results 09/09/24 09/09/24 Range/Units 22:42 22:43 WBC 8.3 (4.5-10.0) K/mm3 RBC 4.77 (4.2-5.4) M/mm3 Hgb 13.4 (12.0-15.0) g/dL Hct 40.3 (37.0-47.0) % MCV 84.5 (80-100) fl MCH 28.1 (26-34) pg MCHC 33.3 (32-36) g/dl RDW 12.7 (11.5-14.5) % Plt Count 226 (150-375) k/mm3 MPV 9.6 (7.4-10.4) fl Immature Gran % (Auto) 0.4 (0-0.5) % Neut % (Auto) 57.7 (45.5-73.1) % Lymph % (Auto) 29.8 (18.3-44.2) % Long % (Auto) 9.0 H (2.6-8.5) % Eos % (Auto) 2.6 (0-4.4) % Baso % (Auto) 0.5 (0.2-1.2) % Lymph # (Auto) 2.48 (0.9-3.2) K/mm3 Long # (Auto) 0.8 H (0.1-0.6) K/mm3 Eos # (Auto) 0.2 (0-0.3) K/mm3 Baso # (Auto) 0.0 (0.0-0.1) K/mm3 Abs Immat Gran (auto) 0.03 (0.00-0.031) K/mm3 Absolute Neuts (auto) 4.8 (1.3-6.7) K/mm3 Absolute Nucleated RBC 0.000 (0.0-0.012) K/mm3 Nucleated RBC % 0.0 (0.0-0.2) % Sodium 141 (137-145) mmol/L Potassium 4.1 (3.4-5.0) mmol/L Chloride 102 (98-107) mmol/L Carbon Dioxide 31 H (22-30) mmol/L Anion Gap 8 (4-12) mmol/L BUN 12 (7-17) mg/dL Creatinine 0.65 L (0.7-1.0) mg/dL Estim Creat Clear Calc 68 ml/min Estimated GFR > 60 (59 - ) Glucose 103 (65-110) mg/dL Calcium 9.2 (8.4-10.2) mg/dL Total Bilirubin 0.3 (0.2-1.3) mg/dL AST 34 (14-36) U/L ALT 25 (6-35) U/L Alkaline Phosphatase 123 (38-126) U/L Total Protein 8.0 (6.3-8.2) g/dL Albumin 4.6 (3.5-5.1) g/dL Lipase 199 (23-300) U/L Urine Color Yellow (Yellow) Urine Appearance Clear (Clear) Urine pH 8.0 (5.0-9.0) Ur Specific [place] 1.009 (1.001-1.035) Urine Protein Negative (Negative) mg/dL Urine Glucose (UA) Negative (Negative) mg/dL Urine Ketones Negative (Negative) mg/dL Ur Blood (Man) Negative (Negative) Urine Nitrate Negative (Negative) Urine Bilirubin Negative (Negative) Urine Urobilinogen 0.2 (<2.0) mg/dL Add Ur Microanalysis Reviewed Leukocyte Esterase Rfl 1+ H (Negative) TYLER/UL Urine RBC 0-2 (0-2) /hpf Urine WBC 0-5 (0-3) /hpf Ur Squamous Epith Cells None seen (Few) /hpf Urine Bacteria None seen /hpf Urine Casts 0-2 Imaging Data Radiologist's impression: ITS Impressions Abdomen/Pelvis CT 09/10/24 06:22 Impression: No acute abnormality. Small fat-containing umbilical hernia. CT abdomen pelvis: No acute findings Critical Care Time Critical Care Time Critical Care Time: No Discharge Plan Discharge Clinical Impression: Right upper quadrant abdominal pain Patient Disposition: Home, Self-Care Condition: Improved Instructions: Abdominal Pain (ED) Additional Instructions: Return to the ER if you experience fever, worsening abdominal pain with nausea and vomiting, you are unable to keep down liquids or solids, or any other symptoms that are concerning to you Remain well hydrated. Avoid spicy/acidic foods. Avoid alcohol. Avoid eating just before bedtime. Avoid anti-inflammatories. Pepcid as needed Follow up with your primary care doctor Patient Language: Vincentian Prescriptions: No Action amlodipine 2.5 mg tablet 2.5 mg PO DAILY Qty: 30 0RF Follow-up/Referrals: UNKNOWN,DOCTOR [Primary Care Provider] -
[2024-09-09 23:49] VITALS: BP 183/81; PULSE 83; RESP 17; O2SAT 100
[2024-09-09] MEDS: MORPHINE SULFATE (*CRX) 4 MG/ML INJ IV PUSH (23:49)
[2024-09-09] MEDS: ONDANSETRON INJ 4 MG/2 ML VIAL IV PUSH (23:49)
[2024-09-10 02:22] VITALS: BP 116/75; PULSE 65; RESP 17; O2SAT 99
== END 2024-09-10 04:16 | disposition home or self-care (01) ==
PROVIDERS: Emergency Provider Physician Assistant
DX: R10.11 Right upper quadrant pain (principal)
CPT/HCPCS: 36415; 74177; 80053; 81001; 83690; 85025; 87086; 96374; 96375; 99284; J2270; J2405; Q9967

== ENCOUNTER 2024-09-28 23:23 | Emergency (ER) | payer MEDICARE, SELFPAY ==
--- NOTE | ~2024-09-28 | CT_ITS ---
EXAMINATION: CT brain wo con DATE: 09/29/2024 01:14 INDICATION: Headache TECHNIQUE: Computed tomography (CT) of the head was performed without intravenous contrast. The dose- length product was 605.33 mGy-cm. Automated exposure control and iterative reconstruction technique w ere employed. COMPARISON: None FINDINGS: No acute intracranial hemorrhage, infarction, mass or mass effect. No ventriculomegaly or m idline shift. Basilar cisterns are patent. Normal sepulveda-white differentiation. Paranasal sinuses are n oted pneumatized. Mastoids are pneumatized. No depressed skull fractures. IMPRESSION: 1. No acute intracranial abnormality. Reviewed, dictated and finalized at location B.
--- OUTSIDE RECORDS SUMMARY | 2024-09-28 23:25 | XMS_ITS | Clinical Summary ---
Author Organization [employer] Address [address] [id number] Phone Care Team Providers Care Dewatering Filtering Supervisor Name Role Phone Momo Christopher Primary Care Provider [phone] Allergies No known active allergies Medications Blood [...] 25 Active ergocalciferol (Vitamin D2) 1.25 MG (70838 UT) capsule TAKE 1 CAPSULE BY MOUTH [...] 12/21/2018 Overview (05/28/2022): Note: Urology consult at [facility] (04/28) Anxiety disorder 07/06/2018 Overview (05/28/2022): Note: Unchanged Impaired glucose tolerance 02/02/2018 Overview (05/28/2022): Note: Unchanged Special screening for malignant neoplasms, colon 10/20/2017 Overview (05/28/2022): Note: mamm neg 08/30; Tdap 10/26; Pap 01/25 double neg (repeat 5 yrs) Note: Unchanged - Colonoscopy at [facility] 02/26/2020- tubular adenoma polyp in Cecum. Diverticular [...] Encounters Date Type Department Care Team Description 09/21/2024 Results Follow-Up [facility] Medicine [address] [place] [address] Sadie Pereira 09/20/2024 Patient Outreach [address] [address] Fide Leslie 09/18/2024 2:00 PM CDT Office Visit [facility] Medicine [address] [place] [address] Momo Christopher DO Dyspepsia (Primary Dx); Flank pain; Generalized abdominal pain 09/18/2024 Travel 08/24/2024 Patient Outreach [address] [address] Fide Leslie 08/10/2024 Patient Outreach [address] [address] Fide Leslie 08/10/2024 Patient Outreach [address] [place] [phone] Fide Leslie 08/08/[address] [place] [phone] Candice Hodges RN Results 08/07/2024 9:15 AM CUFF TURNER Office Visit [address] [place] [phone] Momo Christopher DO Flank pain (Primary Dx); Prediabetes; Screening for osteoporosis; Need for COVID-19 vaccine; Need for prophylactic vaccination and inoculation against influenza; Other fatigue 08/07/2024 Travel 08/06/[address] [place] [phone] Momo Christopher DO from Last 3 Months [...] phone, visiting friends or family, going to uatsdin or club meetings) 5 or more times [...] 025 Unable to get: Medicine or [facility] Health Care (Medical, Dental, Mental Health, Vision) No 08/10/2024 Unable to get: Phone No 08/10/2024 Unable to get: Clothing No 08/10/19 25 Unable to get: skin care consultant No 2024 Unable to get: Other No 08/10/2024 Stress Answer Date Recorded Stress is when someone feels tense, nervous, anxious or can't sleep at night because their mind is troubled. How stressed are you? (If risk for stress identified, consider performing SHAJI-7 in Screenings activity) Not at all 09/20/2024 Food Insecurity Answer Date Recorded Unable to [...] Sign Reading Time Taken Comments Blood Pressure 144/79 09/18/2024 1:57 PM CDT Pulse 81 09/18/2024 1:57 PM CDT Temperature 36.5 C (97.7 F) 09/18/2024 1:57 PM CDT Respiratory Rate 16 08/02/2019 9:17 AM CUFF TURNER Oxygen Saturation 95% 09/18/2024 1:57 PM CDT Inhaled Oxygen Concentration - - Weight 75.8 kg (167 lb) 09/18/2024 1:57 PM CDT Height 153.7 cm (5' 0.5 ) 09/18/2024 1:57 PM CDT Body Mass Index 32.08 09/18/2024 1:57 PM CDT Plan of Treatment Upcoming Encounters Date Type Department Care Team (Late st Contact Info) Description 11/26/2024 2:00 PM CDT Office Visit [facility] Medicine [address] [facility] [place] [phone] Momo Christopher DO [address] [place] [address] Health Maintenance Due Date Last Done Comments [...] Exam 10/30/2023 04/29/2023, 10/19/2022 COVID-19 Vaccine ( - season) 2024 11/28/2020, 10/29/2020 Dental X-Rays 04/29/2024 [...] Completed 07/28/2022, 019 Hepatitis C Screening Completed 07/28/2022, 019 Hepatitis B Vaccines Completed 03/22/2023, 10/14/2022, 08/11/2022 [...] Procedure Name Priority Date/Time Associated Diagnosis Comments COMPREHENSIVE METABOLIC PANEL Routine 09/18/2024 4:00 PM CDT Dyspepsia CBC AND DIFFERENTIAL Routine 09/18/2024 4:00 PM CDT Dyspepsia H. PYLORI BREATH TEST Routine 09/18/2024 4:00 PM CDT Dyspepsia POCT CHOLESTEROL Routine 08/07/2024 11:3 8 AM CUFF TURNER Prediabetes POCT HEMOGLOBIN A1C Routine 08/07/2024 1 1:37 AM CUFF TURNER Prediabetes URINALYSIS, COMPLETE W/REFLEX TO CULTURE Routine 08/07/2024 11:27 AM CUFF TURNER Flank pain COMPREHENSIVE METABOLIC PANEL Routine 08/07/2024 11:27 AM CUFF TURNER Other fatigue REFLEXIVE URINE CULTURE Routine 08/07/2024 11:27 AM CUFF TURNER HM MAMMOGRAPHY Routine 10/26/2023 1:39 PM CDT [...] HEPATITIS PANEL, GENERAL Routine 07/28/2022 1:41 PM CUFF TURNER Myofascial pain LEGACY COLONSCOPY Routine 02/25/2020 11: 00 PM CDT THINPREP TIS PAP Routine 01/12/2018 3:56 PM CDT from Last 3 Months or Most Recently Relevant to Health Maintenance Results * H. pylori breath test (09/18/2024 4:00 PM CDT) HELICOBACTER PYLORI, UREA BREATH TEST NOT DETECTED NOT DETECTED Comment: Antimicrobials, proton pump inhibitors, and bismuth preparations are known to suppress H. pylori, and ingestion of these prior to H. pylori diagnostic testing may lead to false negative results. If clinically indicated, the test may be repeated on a new specimen obtained two weeks after discontinuing treatment. However, a positive result is still clinically valid. Breath Oral cavity structure / Unknown 09/18/2024 4:00 PM CDT 09/18/2024 4:01 PM CDT us Ashwini Beltran MD LAB BLOOD ORDERABLES nal Result [facility] * CBC and differential (09/18/2024 4:00 PM CDT) WBC 9.0 3.8 - 10.8 Thousand/u L [facility] RBC 4.94 3.80 - 5.10 Million/uL [facility] HEMOGLOBIN 14.3 11.7 - 15.5 g/dL [facility] HEMATOCRIT 42.8 35.0 - 45.0 % [facility] MCV 86.6 80.0 - 100.0 fL [facility] MCH 28.9 27.0 - 33.0 pg [facility] MCHC 33.4 32.0 - 36.0 g/dL [facility] Comment: For adults, a slight decrease in the calculated MCHC value (in the range of 30 to 32 g/dL) is most likely not clinically significant; however, it should be interpreted with caution in correlation with other red cell parameters and the patient's clinical condition. RDW 13.0 11.0 - 15.0 % [facility] PLATELETS 244 140 - 400 Thousand/u L [facility] MPV 10.5 7.5 - 12.5 fL [facility] ABSOLUTE NEUTROPHILS 4,986 1,500 - 7,800 cells/uL [facility] ABSOLUTE LYMPHOCYTES 3,042 850 - 3,900 cells/uL [facility] MONOCYTES ABSOLUTE 738 200 - 950 cells/uL [facility] EOSINOPHILS ABSOLUTE 171 15 - 500 cells/uL [facility] BASOPHILS ABSOLUTE 63 0 - 200 cells/uL [facility] NEUTROPHILS 55.4 % [facility] LYMPHOCYTES % 33.8 % [facility] MONOCYTES 8.2 % [facility] EOSINOPHILS 1.9 % [facility] BASOPHILS 0.7 % [facility] Blood Venous blood specimen / Unknown 09/18/2024 4:00 PM CDT 09/18/2024 4:01 PM CDT us Ashwini Beltran MD LAB BLOOD ORDERABLES Fi nal Result [facility] [address] [place] [address], * (ABNORMAL) Comprehensive metabolic panel (09/18/2024 4:00 PM CDT) Only the most recent of2 resultswithin the time period is included. Pathologist [facility] GLUCOSE 105(H) 65 - 99 mg/dL [facility] Comment: Fasting reference interval For someone without known diabetes, a glucose value between 100 and 125 mg/dL is consistent with prediabetes and should be confirmed with a follow-up test. BUN 12 7 - 25 mg/dL [facility] CREATININE SERUN 0.64 0.50 - 1.05 mg/dL [facility] EGFR 98 > OR = 60 mL/min/1. 73m2 [facility] BUN/CREATININE RATIO SEE NOTE: 6 - 22 (calc) [facility] Comment: Not Reported: BUN and Creatinine are within reference range. SODIUM 139 135 - 146 mmol/L [facility] POTASSIUM 4.3 3.5 - 5.3 mmol/L [facility] CHLORIDE 102 98 - 110 mmol/L [facility] CARBON DIOXIDE 26 20 - 32 mmol/L [facility] CALCIUM 9.4 8.6 - 10.4 mg/dL [facility] PROTEIN TOTAL 7.6 6.1 - 8.1 g/dL [facility] ALBUMIN 4.4 3.6 - 5.1 g/dL [facility] GLOBULIN 3.2 1.9 - 3.7 g/dL (calc) [facility] A/G RATIO 1.4 1.0 - 2.5 (calc) [facility] BILIRUBIN TOTAL 0.4 0.2 - 1.2 mg/dL [facility] ALKALINE PHOSPHATASE, SERUM 102 37 - 153 U/L [facility] AST 18 10 - 35 U/L [facility] ALT 15 6 - 29 U/L [facility] Blood Venous blood specimen / Unknown 09/18/2024 4:00 PM CDT 09/18/2024 4:01 PM CDT Ashwini Beltran MD LAB BLOOD ORDERABLES Fi nal Result [facility] [address] [facility] [place] [address], * POCT CHOLESTEROL (08/07/2024 11:38 AM CUFF TURNER) Glucose 136 mg/dL HDL, POC 75 LDL, Direct POC 90 <100 mg/dL NON-HDL, CHOLESTEROL POC 136 Cholesterol, POC 211 TC/HDL, POC 2.8 > or = 50 mg/dL Triglycerides, POC 228 0-149 mg/dL Blood Venous blood specimen / Unknown 08/07/2024 11:38 AM CUFF TURNER us Conner Guzman MD POINT OF CARE TEST ENTER/MARIA DEL ROSARIO T ORDERABLES Final Result * (ABNORMAL) POCT HEMOGLOBIN A1C Manually Resulted (08/07/2024 11:37 AM CUFF TURNER) HEMOGLOBIN A1C 6.1(A) <=5.8 % Blood Venous blood specimen / Unknown 08/07/2024 11:37 AM CUFF TURNER us Conner Guzman MD POINT OF CARE TEST ENTER/MARIA DEL ROSARIO T ORDERABLES Final Result * REFLEXIVE URINE CULTURE (08/07/2024 11:27 AM CUFF TURNER) URINE CULTURE SEE NOTE Comment:NO CULTURE INDICATED 08/07/2024 11:2 7 AM CUFF TURNER 08/07/2024 11:27 AM CUFF TURNER us Conner Guzman MD LAB MICROBIOLOGY - GENERAL O RDERABLES Final Result [facility] * URINALYSIS, COMPLETE W/REFLEX TO CULTURE (08/07/2024 11:27 AM CUFF TURNER) COLOR URINE YELLOW YELLOW APPEARANCE URINE CLEAR [...] catch procedure / Unknown 08/07/2024 11:27 AM CUFF TURNER 08/07/2024 11:27 AM CUFF TURNER Conner Guzman MD LAB URINE ORDERABLES Final R esult [facility] * Hm Mammography (10/26/2023 1:39 PM CDT) [...] evaluated with computer assisted technology. PERFORMED BY [facility] Comment: MDG, CT(ASCP) CT screening location: [place] [address] [place] [address] (ALWAYS MESSAGE) [facility] Comment: EXPLANATORY NOTE: The Pap is a [...] HPV mRNA E6/E7 Not Detected Not Detected [facility] Comment: Methodology: Carpenter Rough-Mediated Amplification This assay detects E6/E7 viral messenger RNA (mRNA) from 14 high-risk HPV types (16,18,31,33,35,39,45,51,52,56,58,59,66,68). Cervical sources are required for HPV testing. If a vaginal source from a patient who has had a total hysterectomy with removal of cervix was submitted, please contact the testing laboratory for alternative testing options. For additional information, please refer to http://Wapi.mymission2/faq/IXM000w9 (This link if provided for information/ educational purposes only.) Swab 09/27/2022 11:1 9 AM CDT 09/28/2022 12:29 AM CDT Fozia Friedman MD LAB CYTOLOGY ORDERABLES Fin al Result [facility] [address] [place] [address], [facility] * (ABNORMAL) HEPATITIS PANEL, GENERAL (07/28/2022 1:41 PM CUFF TURNER) HEPATITIS A AB REACTIVE( A) NON-REACT ROHAN [facility] Comment: For additional information, please refer to http://education.Bioincept.Loladex/faq/QBY249 (This link is being provided for informational/ educational purposes only.) HEPATITIS B SURF AB NON-REACT ROHAN NON-REACT ROHAN [facility] HEPATITIS B SURFACE AG NON-REACT ROHAN NON-REACT ROHAN [facility] HEPATITIS B CORE AB NON-REACT [...] a test for HCV RNA (test code 34215) is suggested. For additional information please refer to http://education.mymission2/faq/DGA82h9 (This link is being provided for informational/ educational purposes only.) Blood Venous blood specimen / Unknown 07/28/2022 1:41 PM CUFF TURNER 07/28/2022 7:50 PM CUFF TURNER Leila Dorothea Cabrales MD LAB BLOOD ORDERABLES Final Resu lt [facility] [address] [address] [facility] [place] [address], * Legacy Colonoscopy (02/25/2020 11:00 PM CDT) [...] For reports prior to 07/11/2018, reference [facility] Conversion Provider ENDOSCOPY PROCEDURE ORDERABLES Final Result [...] 3:56 PM CDT 01/12/2018 3:56 PM CDT us [facility] Conversion Provider LAB MICROBIOLOGY - G ENERAL ORDERABLES Final Result [facility] from Last 3 Months or Most Recently Relevant to Health Maintenance Care Teams Dewatering Filtering Supervisor Relationship Specialty Start Date End Date Momo Christopher DO [address] [place] [address] PCP - General Family Medicine 01/11/24
--- OUTSIDE RECORDS SUMMARY | 2024-09-28 23:25 | XMS_ITS | Clinical Summary ---
Author Organization [facility] [employer] Address [address] [facility] [place] [address] Care Team Providers Care Architect In Training Name Role Phone [facility] C Primary Care Pro vider Source Comments [facility],non-owned Affiliates and Associated Physician Practices is amultiple site organization consisting of ambulatory clinics and hospital sitesin [place], [place], [place] and [place]. This disclosure is being madepursuant to the Care Everywhere program and may not contain all information available regarding this patient. Last updated 18.[facility] [employer] Allergies No known active allergies Medications * [...] to complete this topic MENINGOCOCCAL (Group B) VACC INE SHARED DECISION-MAKING Aged Out No longer eligibl e based on patient's age to complete this topic MENINGOCOCCAL GROUPS A/C/Y/W VACCINE Aged Out No longer eligible b ased on patient's age to complete this topic Care Teams Architect In Training Relationship Specialty Start Date End Date [facility] C [address] [place] [address] PCP - General Harness Mender 07/10/18
--- OUTSIDE RECORDS SUMMARY | 2024-09-28 23:25 | XMS_ITS | Encounter Summary ---
Author Organization [employer] Address [address] [place] [address] Phone Care Team Providers Care Art Studio Teacher Name Role Phone Momo Christopher Primary Care Provider [phone] Reason for Visit * Reason Onset Date Comments Results 09/21/2024 Encounter Details Date Type Department Care Team (Late st Contact Info) Description 09/21/2024 Results Follow-Up [facility] Medicine [address] [place] [address]. [place] [address] Sadie Pereira Social History Tobacco Use Types Packs/Day Years Used Date Smoking Tobacco: Never Passive Smoke Exposure: Never Smokeless Tobacco: Never Alcohol Use Standard Drinks/Week Comments Never 0 [...] phone, visiting friends or family, going to yarsanism or club meetings) 5 or more times [...] 025 Unable to get: Medicine or A sc Health Care (Medical, Dental, Mental Health, Vision) No 08/10/2024 Unable to get: Phone No 08/10/2024 Unable to get: Clothing No 08/10/19 25 Unable to get: customer care assistant No 2024 Unable to get: Other No [...] Orientation Straight 04/11/2022 4: 03 PM EDT documented as of this encounter Miscellaneous Notes * Telephone Encounter - Sadie Pereira - 09/21/2024 9:47 AM CDT ----- Message from Momo Christopher sent at 09/21/2024 9:25 AM CDT ----- Can we call Kasey with her results? Her blood work shows no signs of infection and the breath test was negative for H. Pylori. Her kidney and liver function were also normal. I would recommend she take omeprazole 20mg once daily, consistently and start keeping a food diary to see what foods trigger her symptoms. If avoiding those foods and the omeprazole dose is insufficient, we can always go up on it. Let me know if she has any questions. Thank you! ----- Message ----- From: Meg Dietz Lab Results In Sent: 09/19/2024 5:20 AM CDT To: Momo Christopher DO documented in this encounter Plan of Treatment Upcoming Encounters Date Type Department Care Team (Late st Contact Info) Description 11/26/2024 2:00 PM CDT Office Visit [facility] Medicine [address] [facility] [place] [address] Momo Christopher DO [address] [place] [address] documented as of this encounter Visit Diagnoses Not on filedocumented in this encounter Additional Health Concerns Assessment Noted Time PHQ-9 Depression Total Score: 5 03/08/20 10:39 AM EDT documented as of this encounter Care Teams Art Studio Teacher Relationship Specialty Start Date End Date Momo Christopher DO [address] [place] [address] PCP - General Family Medicine 01/11/24 documented as of this encounter
--- OUTSIDE RECORDS SUMMARY | 2024-09-28 23:25 | XMS_ITS | Clinical Summary ---
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 There are scattered [...] compared to prior imaging studies performed at [facility] on 09/07/2022, and at [facility] on 09/05/2019 and 08/06/2021. There are scattered [...] Female Attending MD: Myah Akers M.D. Room: [facility] ENDOSCOPY ROOM 8 Note Status: Finalized [...] was passed under direct vision. The CF [id number] endoscope was introduced through the anusand advanced [...] On: 02/26/2020 2:10 PM Recognized by the [place] [employer] for promoting quality in endoscopy Myah Akers MD ENDOSCOPY PROCEDURES F inal Result from Last 3 Months or Most Recently Relevant to Health Maintenance Insurance [id number] [place] [address] GATEWAY TO BETTER HEALTH GATEWAY TO [facility] [place] [address] Advance Directives For more information, please contact: [phone] * Full Code (Latest Code Status on File) Date Activated Date Inactivated Comments 02/26/2020 12:58 PM 02/26/2020 7:34 PM Care Teams Hydropress Operator Relationship Specialty Start Date End Date Dorothea Cabrales MD [address] [place] [address] PCP - General Family Medicine 10/14/23
--- OUTSIDE RECORDS SUMMARY | 2024-09-28 23:25 | XMS_ITS | Referral Summary ---
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 [...] compared to prior imaging studies performed at [facility] on 09/07/2022, and at [facility] [...] Female Attending MD: Myah Akers M.D. Room: [facility] ENDOSCOPY ROOM 8 Note Status: [...] was passed under direct vision. The CF [id number] endoscope was introduced through the anusand [...] On: 02/26/2020 2:10 PM Recognized by the [employer] for promoting quality in endoscopy us Myah Akers MD ENDOSCOPY PROCEDURES F inal Result from Last 3 Months or Most Recently Relevant to Health Maintenance Insurance GATEWAY TO BETTER HEALTH GATEWAY TO [facility] HEALTH GATEWAY TO [facility] HEALTH Advance Directives For more information, please contact: [phone] * Full Code (Latest Code Status on File) Date Activated Date Inactivated Comments 02/26/2020 12:58 PM 02/26/2020 7:34 PM Care Teams Parking Lot Attendant Relationship Specialty Start Date End Date Dorothea Cabrales MD [address] [place] [address] PCP - General Family Medicine 10/14/23
[2024-09-28 23:28] VITALS: BP 175/69; PULSE 75; RESP 19; TEMP 36.7; O2SAT 97
[2024-09-29 00:45] VITALS: BP 166/70; PULSE 64; RESP 18; O2SAT 97
--- OUTSIDE RECORDS SUMMARY | 2024-09-29 01:03 | XMS_ITS | Clinical Summary ---
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 There are [...] compared to prior imaging studies performed at [facility] on 09/07/2022, and at [facility] on 09/05/2019 and 08/06/2021. There are [...] Female Attending MD: Myah Akers M.D. Room: [facility] ENDOSCOPY ROOM 8 Note Status: Finalized [...] was passed under direct vision. The CF [id number] endoscope was introduced through the anusand advanced [...] On: 02/26/2020 2:10 PM Recognized by the [place] [employer] Gastrointestinal [employer]oscopy for promoting quality in endoscopy Myah Akers MD ENDOSCOPY PROCEDURES F inal Result from Last 3 Months or Most Recently Relevant to Health Maintenance Insurance [id number] [place] [address] GATEWAY TO BETTER HEALTH GATEWAY TO [place] [address] [place] [address] Advance Directives For more information, please contact: [phone] * Full Code (Latest Code Status on File) Date Activated Date Inactivated Comments 02/26/2020 12:58 PM 02/26/2020 7:34 PM Care Teams Customer Care Consultant Relationship Specialty Start Date End Date Dorothea Cabrales MD [address] [place] [address] PCP - General Family Medicine 10/14/23
--- OUTSIDE RECORDS SUMMARY | 2024-09-29 01:03 | XMS_ITS | Clinical Summary ---
Author Organization [facility] [employer] Address [address] [facility] [place] [address] Care Team Providers Care Chip Silo Tender Name Role Phone [facility] C Primary Care Pro vider Source Comments [facility],non-owned Affiliates and Associated Physician Practices is amultiple site organization consisting of ambulatory clinics and hospital sitesin [place], [place], [place] and [place]. This disclosure is being madepursuant to the Care Everywhere program and may not contain all information available regarding this patient. Last updated 18.[facility] [employer] Allergies No known active allergies Medications * [...] age to complete this topic Care Teams Chip Silo Tender Relationship Specialty Start Date End Date [facility] C [address] [place] [address] PCP - General Patient Safety Officer 07/10/18
--- OUTSIDE RECORDS SUMMARY | 2024-09-29 01:03 | XMS_ITS | Referral Summary ---
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 [...] compared to prior imaging studies performed at [facility] on 09/07/2022, and at [facility] on 09/05/2019 and 08/06/2021. [...] Attending MD: Myah Akers M.D. Room: [facility] ENDOSCOPY ROOM 8 Note Status: Finalized Procedure: Colonoscopy Indications: Screening for colorectal malignant neoplasm Referring MD: Chad CrocekttNJocelyne Providers: Myah Akers M.D., Mario Prieto M.D. [...] was passed under direct vision. The CF [id number] endoscope was introduced through the anusand [...] On: 02/26/2020 2:10 PM Recognized by the [employer] for promoting quality in endoscopy us Myah Akers MD ENDOSCOPY PROCEDURES F inal Result from Last 3 Months or Most Recently Relevant to Health Maintenance Insurance GATEWAY TO [employer] GATEWAY TO [facility] GATEWAY TO [facility] Advance Directives For more information, please contact: [phone] * Full Code (Latest Code Status on File) Date Activated Date Inactivated Comments 02/26/2020 12:58 PM 02/26/2020 7:34 PM Care Teams Heat Treatment Technician Relationship Specialty Start Date End Date Dorothea Cabrales MD [address] [place] [id number] PCP - General Family Medicine 10/14/23
--- OUTSIDE RECORDS SUMMARY | 2024-09-29 01:03 | XMS_ITS | Encounter Summary ---
Author Organization [employer] Address [address] [place] [address] Phone Care Team Providers Care Seat Coverer Name Role Phone Momo Christopher Primary Care Provider [phone] Reason for Visit * Reason Onset Date Comments Results 09/21/2024 Encounter Details Date Type Department Care Team (Late st Contact Info) Description 09/21/2024 Results Follow-Up [facility] Medicine [address] [place] [address]. [place] [address] Sadie Pereira Social History Tobacco [...] phone, visiting friends or family, going to zoroastrianism or club meetings) 5 or more times [...] 025 Unable to get: Medicine or [facility] (Medical, Dental, Mental Health, Vision) No 08/10/2024 Unable to get: Phone No 08/10/2024 Unable to get: Clothing No 08/10/19 25 Unable to get: healthcare administration internship No 2024 Unable to get: Other No [...] Miscellaneous Notes * Telephone Encounter - Sadie ePreira - 09/21/2024 9:47 AM CDT ----- Message [...] CDT Office Visit [facility] Medicine [address] [facility] [place] [address] Momo Christopher DO [address] [place] [address] documented as of this encounter Visit Diagnoses Not on filedocumented in this encounter Additional Health Concerns Assessment Noted Time PHQ-9 Depression Total Score: 5 03/08/20 10:39 AM EDT documented as of this encounter Care Teams Seat Coverer Relationship Specialty Start Date End Date Momo Christopher DO [address] [place] [address] PCP - General Family Medicine 01/11/24 documented as of this encounter
--- OUTSIDE RECORDS SUMMARY | 2024-09-29 01:03 | XMS_ITS | Clinical Summary ---
Author Organization [employer] Address [address] [id number] Phone Care Team Providers Care Inspector And Unloader Name Role Phone Momo Christopher Primary Care Provider [phone] Allergies No known active allergies Medications Blood [...] 25 Active ergocalciferol (Vitamin D2) 1.25 MG (10798 UT) capsule TAKE 1 CAPSULE BY MOUTH [...] 12/21/2018 Overview (05/28/2022): Note: Urology consult at [facility] (04/28) Anxiety disorder 07/06/2018 Overview (05/28/2022): Note: Unchanged Impaired glucose tolerance 02/02/2018 Overview (05/28/2022): Note: Unchanged Special screening for malignant neoplasms, colon 10/20/2017 Overview (05/28/2022): Note: mamm neg 08/30; Tdap 10/26; Pap 01/25 double neg (repeat 5 yrs) Note: Unchanged - Colonoscopy at [facility] 02/26/2020- tubular adenoma polyp in [...] Department Care Team Description 09/21/2024 Results Follow-Up [facility] Medicine [address] [place] [address] Sadie Pereira 09/20/2024 Patient Outreach [address] [address] Fide Leslie 09/18/2024 2:00 PM CDT Office Visit [facility] Medicine [address] [place] [address] Momo Christopher DO Dyspepsia (Primary Dx); Flank pain; Generalized abdominal pain 09/18/2024 Travel 08/24/2024 Patient Outreach [address] [address] Fide Leslie 08/10/2024 Patient Outreach [address] [address] Fide Leslie 08/10/2024 Patient Outreach [address] [place] [phone] Fide Leslie 08/08/[address] [place] [phone] Candice Hodges RN Results 08/07/2024 9:15 AM TRANSIT DRIVER Office Visit [address] [place] [phone] Momo Christopher DO Flank pain (Primary Dx); Prediabetes; Screening for osteoporosis; Need for COVID-19 vaccine; Need for prophylactic vaccination and inoculation against influenza; Other fatigue 08/07/2024 Travel 08/06/[address] [place] [phone] Momo Christopher DO from Last 3 Months [...] phone, visiting friends or family, going to orthodoxy or club meetings) 5 or more times [...] 025 Unable to get: Medicine or [facility] (Medical, Dental, Mental Health, Vision) No 08/10/2024 Unable to get: Phone No 08/10/2024 Unable to get: Clothing No 08/10/19 25 Unable to get: care management specialist No 2024 Unable to get: Other No [...] CDT Respiratory Rate 16 08/02/2019 9:17 AM TRANSIT DRIVER Oxygen Saturation 95% 09/18/2024 1:57 PM CDT Inhaled Oxygen Concentration - - Weight 75.8 kg (167 lb) 09/18/2024 1:57 PM CDT Height 153.7 cm (5' 0.5 ) 09/18/2024 1:57 PM CDT Body Mass Index 32.08 09/18/2024 1:57 PM CDT Plan of Treatment Upcoming Encounters Date Type Department Care Team (Late st Contact Info) Description 11/26/2024 2:00 PM CDT Office Visit [facility] Medicine [address] [facility] [place] [phone] Momo Christopher DO [address] [place] [address] Health Maintenance Due Date Last [...] POCT CHOLESTEROL Routine 08/07/2024 11:3 8 AM TRANSIT DRIVER Prediabetes POCT HEMOGLOBIN A1C Routine 08/07/2024 1 1:37 AM TRANSIT DRIVER Prediabetes URINALYSIS, COMPLETE W/REFLEX TO CULTURE Routine 08/07/2024 11:27 AM TRANSIT DRIVER Flank pain COMPREHENSIVE METABOLIC PANEL Routine 08/07/2024 11:27 AM TRANSIT DRIVER Other fatigue REFLEXIVE URINE CULTURE Routine 08/07/2024 11:27 AM TRANSIT DRIVER HM MAMMOGRAPHY Routine 10/26/2023 1:39 PM CDT [...] HEPATITIS PANEL, GENERAL Routine 07/28/2022 1:41 PM TRANSIT DRIVER Myofascial pain LEGACY COLONSCOPY Routine 02/25/2020 11: [...] ORDERABLES Fi nal Result [facility] [address] [place] [address], * (ABNORMAL) Comprehensive metabolic panel (09/18/2024 4:00 PM CDT) Only the most recent of2 resultswithin the time period is included. Pathologist [facility] GLUCOSE 105(H) 65 - 99 mg/dL [facility] [...] ORDERABLES Fi nal Result [facility] [address] [address] [place] [address], * POCT CHOLESTEROL (08/07/2024 11:38 AM TRANSIT DRIVER) Glucose 136 mg/dL HDL, POC 75 LDL, Direct POC 90 <100 mg/dL NON-HDL, CHOLESTEROL POC 136 Cholesterol, POC 211 TC/HDL, POC 2.8 > or = 50 mg/dL Triglycerides, POC 228 0-149 mg/dL Blood Venous blood specimen / Unknown 08/07/2024 11:38 AM TRANSIT DRIVER us Conner Guzman MD POINT OF CARE TEST ENTER/MARIA DEL ROSARIO T ORDERABLES Final Result * (ABNORMAL) POCT HEMOGLOBIN A1C Manually Resulted (08/07/2024 11:37 AM TRANSIT DRIVER) HEMOGLOBIN A1C 6.1(A) <=5.8 % Blood Venous blood specimen / Unknown 08/07/2024 11:37 AM TRANSIT DRIVER us Conner Guzman MD POINT OF CARE TEST ENTER/MARIA DEL ROSARIO T ORDERABLES Final Result * REFLEXIVE URINE CULTURE (08/07/2024 11:27 AM TRANSIT DRIVER) URINE CULTURE SEE NOTE Comment:NO CULTURE INDICATED 08/07/2024 11:2 7 AM TRANSIT DRIVER 08/07/2024 11:27 AM TRANSIT DRIVER us Conner Guzman MD LAB MICROBIOLOGY - GENERAL O RDERABLES Final Result [facility] * URINALYSIS, COMPLETE W/REFLEX TO CULTURE (08/07/2024 11:27 AM TRANSIT DRIVER) COLOR URINE YELLOW YELLOW APPEARANCE URINE CLEAR [...] catch procedure / Unknown 08/07/2024 11:27 AM TRANSIT DRIVER 08/07/2024 11:27 AM TRANSIT DRIVER Conner Guzman MD LAB URINE ORDERABLES Final [...] 1 Comment: MDG, CT(ASCP) CT screening location: [place] [address] [place] [address] (ALWAYS MESSAGE) [facility] Comment: EXPLANATORY NOTE: [...] Not Detected [facility] Comment: Methodology: Nut Processing Supervisor-Mediated Amplification This assay detects E6/E7 viral messenger RNA (mRNA) from 14 high-risk HPV types (16,18,31,33,35,39,45,51,52,56,58,59,66,68). Cervical sources are required for HPV testing. If a vaginal source from a patient who has had a total hysterectomy with removal of cervix was submitted, please contact the testing laboratory for alternative testing options. For additional information, please refer to http://Envis.WeGoOut/faq/XJZ146f2 (This link if provided for information/ educational purposes only.) Swab 09/27/2022 11:1 9 AM CDT 09/28/2022 12:29 AM CDT Fozia Friedman MD LAB CYTOLOGY ORDERABLES Fin al Result [facility] [address] [place] [address], [facility] * (ABNORMAL) HEPATITIS PANEL, GENERAL (07/28/2022 1:41 PM TRANSIT DRIVER) HEPATITIS A AB REACTIVE( A) NON-REACT ROHAN [facility] Comment: For additional information, please refer to http://education.[employer].TextHub/faq/AZL772 (This link is being provided for informational/ [...] a test for HCV RNA (test code 57820) is suggested. For additional information please refer to http://education.WeGoOut/faq/HEH99p1 (This link is being provided for informational/ educational purposes only.) Blood Venous blood specimen / Unknown 07/28/2022 1:41 PM TRANSIT DRIVER 07/28/2022 7:50 PM TRANSIT DRIVER Leila Dorothea Cabrales MD LAB BLOOD ORDERABLES Final Resu lt [facility] [address] [address] [facility] [place] [address], * Legacy Colonoscopy (02/25/2020 11:00 PM CDT) [...] For reports prior to 07/11/2018, [facility] Provider ENDOSCOPY PROCEDURE ORDERABLES Final Result [...] Recently Relevant to Health Maintenance Care Teams Inspector And Unloader Relationship Specialty Start Date End Date Momo Christopehr DO [address] [place] [id number] PCP - General Family Medicine 01/11/24
[2024-09-29 01:30] VITALS: BP 174/63; PULSE 65; RESP 16; O2SAT 98
[2024-09-29] MEDS: DICYCLOMINE HCL INJ 20 MG/2 ML VIAL IM (01:34)
[2024-09-29 01:46] LABS: Basophils Absolute Auto 0.1 K/mm3 (0.0-0.1); Basophils Percent Auto 0.7 % (0.2-1.2); Eosinophils Absolute Auto 0.2 K/mm3 (0-0.3); Eosinophils Percent Auto 2.2 % (0-4.4); Hematocrit 42.8 % (37.0-47.0); Hemoglobin 14.3 g/dL (12.0-15.0); Immature Granulocyte Absolute 0.03 K/mm3 (0.00-0.031); Immature Granulocyte Percent A 0.4 % (0-0.5); Lymphocytes Percent Auto 32.6 % (18.3-44.2); Mean Corpuscular HGB Conc 33.4 g/dl (32-36); Mean Corpuscular Hemoglobin 28.1 pg (26-34); Mean Corpuscular Volume 84.3 fl (80-100); Mean Platelet Volume 9.9 fl (7.4-10.4); Monocytes Absolute Auto 0.5 K/mm3 (0.1-0.6); Monocytes Percent Auto 5.8 % (2.6-8.5); Neutrophils Absolute Auto 4.8 K/mm3 (1.3-6.7); Neutrophils Percent Auto 58.3 % (45.5-73.1); Platelet Count Result 235 k/mm3 (150-375); Red Blood Count 5.08 M/mm3 (4.2-5.4); Red Cell Distribution Width 12.8 % (11.5-14.5); White Blood Count 8.3 K/mm3 (4.5-10.0)
--- NOTE | 2024-09-29 01:56 | ED_ITS ---
HPI - General Adult General Chief complaint: Unspecified Stated complaint: high blood pressure Time Seen by Provider: 09/29/24 00:47 History of Present Illness HPI narrative: Patient is 64-year-old female who presents emergency department chief complaint of blood pressure. Patient reports pressure was in the 200s reports that she is on blood pressure medicines reports she had a headache has felt generally unwell today. Related Data Allergies Allergy/AdvReac Type Severity Reaction Status Date / Time No Known Allergies Allergy Verified 09/28/24 23:24 Review of Systems 2 Review of Systems: A 10 system review of systems was completed on the patient and is negative except for what is stated in the HPI. Nursing and ancillary documentation was reviewed. [facility] Surgical History Surgical History History of appendectomy Social History Social History Smoking status: Never smoker Exam 2 Narrative: GENERAL: Well-appearing, well-nourished, and in no acute distress. HEAD: Normocephalic, atraumatic. EYES: PERRLA and EOMI. ENT: Nares clear, no rhinorrhea or epistaxis. Mucous membranes moist. NECK: Supple. CHEST: Clear to auscultation. No respiratory distress. HEART: Regular rate and rhythm. No murmur heard. Normal peripheral pulses. ABDOMEN: Soft, nontender, nondistended, normal active bowel sounds. EXTREMITIES: Normal range of motion. No edema. SKIN: Warm, dry, no rash. NEURO: No focal deficits. Alert and oriented x3. PSYCH: Normal mood and affect. Course Vital Signs Vital signs: Vital Signs Temperature 36.7 C 09/28/24 23:28 Pulse Rate 75 09/28/24 23:28 Respiratory Rate 19 09/28/24 23:28 Blood Pressure 175/69 H 09/28/24 23:28 Pulse Oximetry 97 09/28/24 23:28 Oxygen Delivery Room Air 09/28/24 23:28 Temperature 36.7 C 09/28/24 23:28 Pulse Rate 65 09/29/24 01:30 Respiratory Rate 16 09/29/24 01:30 Blood Pressure 174/63 H 09/29/24 01:30 Pulse Oximetry 98 09/29/24 01:30 Oxygen Delivery Room Air 09/28/24 23:28 Medical Decision Making MDM Narrative Medical decision making narrative: Differential diagnosis includes intracranial hemorrhage, migraine headache, hypertension, Laboratory studies were obtained which were within normal limits the patient has been observed in the emergency department blood pressure has come down without medications. CT head showed no acute abnormality Vital Signs Vital Signs: Vital Signs Temperature 36.7 C 09/28/24 23:28 Pulse Rate 75 09/28/24 23:28 Respiratory Rate 19 09/28/24 23:28 Blood Pressure 175/69 H 09/28/24 23:28 Pulse Oximetry 97 09/28/24 23:28 Oxygen Delivery Room Air 09/28/24 23:28 Temperature 36.7 C 09/28/24 23:28 Pulse Rate 65 09/29/24 01:30 Respiratory Rate 16 09/29/24 01:30 Blood Pressure 174/63 H 09/29/24 01:30 Pulse Oximetry 98 09/29/24 01:30 Oxygen Delivery Room Air 09/28/24 23:28 Lab Data 09/29/24 01:34 09/29/24 01:34 Labs: Lab Results 09/29/24 Range/Units 01:34 WBC 8.3 (4.5-10.0) K/mm3 RBC 5.08 (4.2-5.4) M/mm3 Hgb 14.3 (12.0-15.0) g/dL Hct 42.8 (37.0-47.0) % MCV 84.3 (80-100) fl MCH 28.1 (26-34) pg MCHC 33.4 (32-36) g/dl RDW 12.8 (11.5-14.5) % Plt Count 235 (150-375) k/mm3 MPV 9.9 (7.4-10.4) fl Immature Gran % (Auto) 0.4 (0-0.5) % Neut % (Auto) 58.3 (45.5-73.1) % Lymph % (Auto) 32.6 (18.3-44.2) % [place] % (Auto) 5.8 (2.6-8.5) % Eos % (Auto) 2.2 (0-4.4) % Baso % (Auto) 0.7 (0.2-1.2) % Lymph # (Auto) 2.70 (0.9-3.2) K/mm3 [place] # (Auto) 0.5 (0.1-0.6) K/mm3 Eos # (Auto) 0.2 (0-0.3) K/mm3 Baso # (Auto) 0.1 (0.0-0.1) K/mm3 Abs Immat Gran (auto) 0.03 (0.00-0.031) K/mm3 Absolute Neuts (auto) 4.8 (1.3-6.7) K/mm3 Absolute Nucleated RBC 0.000 (0.0-0.012) K/mm3 Nucleated RBC % 0.0 (0.0-0.2) % Sodium 140 (137-145) mmol/L Potassium 4.1 (3.4-5.0) mmol/L Chloride 104 (98-107) mmol/L Carbon Dioxide 24 (22-30) mmol/L Anion Gap 12 (4-12) mmol/L BUN 10 (7-17) mg/dL Creatinine 0.65 L (0.7-1.0) mg/dL Estim Creat Clear Calc 69 ml/min Estimated GFR > 60 (59 - ) Glucose 123 H (65-110) mg/dL Lactic Acid 1.2 (0.7-2.0) mmol/L Calcium 9.6 (8.4-10.2) mg/dL Magnesium 2.2 (1.6-2.3) mg/dL Total Bilirubin 0.5 (0.2-1.3) mg/dL AST 34 (14-36) U/L ALT 26 (6-35) U/L Alkaline Phosphatase 114 (38-126) U/L Troponin I < 0.012 (0.000-0.034) ng/mL Total Protein 8.0 (6.3-8.2) g/dL Albumin 4.6 (3.5-5.1) g/dL Influenza A (RT-PCR) Negative (Negative) Influenza B (RT-PCR) Negative (Negative) RSV (RT-PCR) Negative (Negative) SARS-CoV-2 RNA (RT-PCR) Negative (Negative) Discharge Plan Discharge Clinical Impression: Hypertension, Headache Patient Disposition: Home, Self-Care Condition: Stable Instructions: Antibiotic Form, Acute Headache (ED), Hypertension (ED) Additional Instructions: Please keep a daily log of your blood pressure. Please bring a log of her blood pressure to your primary care provider Patient Language: Argentine Prescriptions: No Action amlodipine 2.5 mg tablet 2.5 mg PO DAILY Qty: 30 0RF Follow-up/Referrals: UNKNOWN,DOCTOR [Primary Care Provider] - Time of Disposition: 03:16
[2024-09-29 02:02] LABS: Lactic Acid Reflex 1.2 mmol/L (0.7-2.0)
[2024-09-29 02:05] LABS: Alanine Aminotransferase 26 U/L (6-35); Albumin Level 4.6 g/dL (3.5-5.1); Alkaline Phosphatase 114 U/L (38-126); Anion Gap 12 mmol/L (4-12); Aspartate Amino Transferase 34 U/L (14-36); Bilirubin,Total 0.5 mg/dL (0.2-1.3); Blood Urea Nitrogen 10 mg/dL (7-17); Calcium 9.6 mg/dL (8.4-10.2); Carbon Dioxide 24 mmol/L (22-30); Chloride 104 mmol/L (98-107); Estimated CRCL calculation 69 ml/min; Estimated Glomerular Filt Rate > 60; Glucose 123 mg/dL (65-110); Magnesium 2.2 mg/dL (1.6-2.3); Potassium 4.1 mmol/L (3.4-5.0); Sodium 140 mmol/L (137-145)
[2024-09-29 02:16] LABS: Troponin I < 0.012 ng/mL (0.000-0.034)
[2024-09-29 02:21] LABS: Influenza A QL RT-PCR Negative (Negative); Influenza B QL RT-PCR Negative (Negative); RSV RNA, RT-PCR Negative (Negative); SARS-CoV-2 RNA PCR Negative (Negative)
== END 2024-09-29 03:22 | disposition home or self-care (01) ==
PROVIDERS: Emergency Provider Emergency Medicine
DX: I10 Essential (primary) hypertension (principal); R51.9 Headache, unspecified; Z20.822 Contact with and (suspected) exposure to COVID-19
CPT/HCPCS: 36415; 70450; 80053; 83605; 83735; 84484; 85025; 87637; 96372; 99284; J0500